=== PATIENT | female | born 1945 | race Caucasian/White ===

== ENCOUNTER 2017-12-06 05:53 | Day surgery (SDC) | payer OTHER ==
[~2017-12-06] VITALS: Ht 157.5 cm; Wt 88.5 kg
[~2017-12-06 05:53] MED LIST: AMLO5 PO; ASPI81CH PO; ATOR10; Alphagan P5 ML BOTHEYES; B-Complex With1 EACH PO; BISA10S PR; BRIM.15SO BOTHEYES; CALCIT950 PO; CALCIUM 600 +1 EAC3 PO; CHOL10002 PO; DILT60 PO; DILTIAZEM 24HR240 M1 PO; ENAL20 PO; FISH OIL 1,0001 EAC1 PO; Garlic Oil1000 MG PO; Hair, Skin & N1 EACH PO; LISI10; LOSA25 PO; Loperamide2 MG PO; MAGCIT300 PO; MELO7.5 PO; METO100ER PO; METO50 PO; METOPROLOL; Magnesium27 MG PO; Multivitamin1 EAC1 PO; NYST100TC TOP; OMEG1CAP30 PO; OXYACE5T PO; PREG150 PO; ROSU5 PO; SILSUL1TC TOP; TELM80; TIZANIDINE HCL2 MG PO; TRAM50 PO; VERA100; Vitamin C100 M1 PO; [UNRECOGNIZED DRUG - REMARK]
[2017-12-07 05:41] LABS: BASOPHILS ABSOLUTE AUTO 0.02 K/mm3 (0.00-0.23); BASOPHILS PERCENT AUTO 0 % (0-2); EOSINOPHILS PERCENT AUTO 0 % (0-6); Hematocrit 37.1 % (33.0-51.0); Hemoglobin 11.8 g/dL (11.5-16.0); IMMATURE GRAN ABSOLUTE AUTO 0.09 K/mm3 (0.00-0.10); IMMATURE GRAN PERCENT AUTO 1 % (0-1); LYMPHOCYTES ABSOLUTE AUTO 2.34 K/mm3 (0.84-5.20); LYMPHOCYTES PERCENT AUTO 15 % (21-46); MONOCYTES ABSOLUTE AUTO 1.23 K/mm3 (0.16-1.47); MONOCYTES PERCENT AUTO 8 % (4-13); Mean Corpuscular HGB 29.6 pg (26.0-34.0); Mean Corpuscular HGB Conc 31.8 g/dL (31.5-36.5); Mean Corpuscular Volume 93 fL (80-100); Mean Platelet Volume 10.3 fL (9.1-12.4); NEUTROPHILS ABSOLUTE AUTO 12.21 K/mm3 (1.96-9.15); NEUTROPHILS PERCENT AUTO 77 % (41-73); Platelet Count 306 K/mm3 (150-400); RDW Coefficient Variation 13.7 % (11.7-14.2); RDW Standard Deviation 46.2 fL (35.1-46.3); Red Blood Cell Count 3.98 M/mm3 (3.80-5.20); White Blood Cell Count 15.89 K/mm3 (4.00-11.30)
[2017-12-07 06:00] LABS: Bun/Creatinine Ratio 16.7 (12.0-20.0); Creatinine, Blood 1.14 mg/dL (0.40-1.00); Magnesium, Blood 2.3 mg/dL (1.6-2.4); Potassium, Blood 4.6 mmol/L (3.5-5.5)
[2017-12-07] MEDS ORDERED: ACET500 PO (15:23)
[2017-12-07] MEDS ORDERED: ASPI325EC PO (15:23)
[2017-12-07] MEDS ORDERED: OXYC5 PO (15:24)
== END 2017-12-07 16:30 | disposition home or self-care (01) ==
LOC: ORSCMMR 05:53 → ORD 07:30 → ORSCMMR 07:30 → SURS 11:15 → ORSCMMR 12-07 16:30
PROVIDERS: Orthopaedic Surgery
PROC: 0SRD0J9 Replacement of Left Knee Joint with Synthetic Substitute, Cemented, Open Approach (ICD-10-PCS; principal; 2017-12-06 07:30)
DX: M17.12 Unilateral primary osteoarthritis, left knee (principal); Z01.812 Encounter for preprocedural laboratory examination; Z01.818 Encounter for other preprocedural examination; I10 Essential (primary) hypertension; Z79.899 Other long term (current) drug therapy; E66.01 Morbid (severe) obesity due to excess calories; Z68.35 Body mass index [BMI] 35.0-35.9, adult
CPT/HCPCS: 36415; 73560-LT; 80048; 83735; 85025; 86850; 86900; 86901; 87077; 87081; 87086; 87186; 88300; 97110; 97116; 97162; 97530; C1713; C1776; G8978; G8979; J0171; J0690; J0735; J1885; J2020; J2250; J2370; J2710; J2795; J3010; J7120

== ENCOUNTER → 2018-11-10 | Outpatient (CLI) | payer OTHER ==
[~2018-11-10] MED LIST changes: +ACET500 PO; +ASPI325EC PO; +OXYC5 PO
== END | disposition home or self-care (01) ==
LOC: LAB UCHC 15:12 → LAB SHORT 15:12
DX: R30.0 Dysuria (principal)
CPT/HCPCS: 87077; 87086; 87186

== ENCOUNTER → 2018-11-23 | Outpatient (CLI) | payer OTHER | END | disposition home or self-care (01) | LOC: LAB 17:48 → LAB SHORT 17:48 | DX: N39.0 Urinary tract infection, site not specified (principal) | CPT/HCPCS: 87077; 87086; 87186 ==

== ENCOUNTER 2019-01-26 12:31 | Day surgery (SDC) | payer OTHER ==
[~2019-01-26] VITALS: Ht 160 cm; Wt 84.7 kg
--- NOTE | 2019-01-26 14:12 | NUR ---
01/26/[address] NOTIFIED OF PRE OP BP'S. NO ORDERS AT THIS TIME.
--- NOTE | 2019-01-26 14:35 | NUR ---
01/26/19 1435 Valorie Sidhu LIDOCAINE 2% JELLY APPLIED TO ANUS PRIOR TO COLONOSCOPY
== END 2019-01-26 15:06 | disposition home or self-care (01) ==
LOC: ORSCSDS 12:31
PROVIDERS: Surgery
PROC: 0DBK8ZX Excision of Ascending Colon, Via Natural or Artificial Opening Endoscopic, Diagnostic (ICD-10-PCS; principal; 2019-01-26 13:45)
PROC: 0DBH8ZX Excision of Cecum, Via Natural or Artificial Opening Endoscopic, Diagnostic (ICD-10-PCS; principal; 2019-01-26 13:45)
PROC: 0DBM8ZX Excision of Descending Colon, Via Natural or Artificial Opening Endoscopic, Diagnostic (ICD-10-PCS; principal; 2019-01-26 13:45)
PROC: 0DBL8ZX Excision of Transverse Colon, Via Natural or Artificial Opening Endoscopic, Diagnostic (ICD-10-PCS; principal; 2019-01-26 13:45)
PROC: 0DJ08ZZ Inspection of Upper Intestinal Tract, Via Natural or Artificial Opening Endoscopic (ICD-10-PCS; principal; 2019-01-26 13:45)
DX: K92.1 Melena (principal); D12.0 Benign neoplasm of cecum; D12.2 Benign neoplasm of ascending colon; D12.3 Benign neoplasm of transverse colon; D12.4 Benign neoplasm of descending colon; Z85.048 Personal history of other malignant neoplasm of rectum, rectosigmoid junction, and anus; I10 Essential (primary) hypertension; M79.7 Fibromyalgia; E03.9 Hypothyroidism, unspecified; Z79.899 Other long term (current) drug therapy
CPT/HCPCS: 88305; J2704; J7120

== ENCOUNTER → 2019-05-15 | Outpatient (CLI) | payer OTHER | LOC: LAB SHORT 14:45 → LAB 14:45 → LAB FUT 08-13 17:15 | DX: N18.3 Chronic kidney disease, stage 3 (moderate) (principal); D63.1 Anemia in chronic kidney disease; R73.09 Other abnormal glucose; N25.81 Secondary hyperparathyroidism of renal origin; E55.9 Vitamin D deficiency, unspecified; E78.00 Pure hypercholesterolemia, unspecified; N20.0 Calculus of kidney; R76.9 Abnormal immunological finding in serum, unspecified; R94.5 Abnormal results of liver function studies; R94.6 Abnormal results of thyroid function studies | CPT/HCPCS: 87077; 87086; 87186 ==

== ENCOUNTER 2019-10-26 07:59 | Inpatient (IN) | payer OTHER ==
[~2019-10-26] VITALS: Ht 165.1 cm; Wt 87.2 kg
[2019-10-26 08:59] LABS: BASOPHILS ABSOLUTE AUTO 0.06 K/mm3 (0.00-0.23); BASOPHILS PERCENT AUTO 0 % (0-2); EOSINOPHILS ABSOLUTE AUTO 0.14 K/mm3 (0.00-0.68); EOSINOPHILS PERCENT AUTO 1 % (0-6); IMMATURE GRAN ABSOLUTE AUTO 0.08 K/mm3 (0.00-0.10); IMMATURE GRAN PERCENT AUTO 1 % (0-1); LYMPHOCYTES ABSOLUTE AUTO 3.46 K/mm3 (0.84-5.20); LYMPHOCYTES PERCENT AUTO 21 % (21-46); MONOCYTES ABSOLUTE AUTO 1.18 K/mm3 (0.16-1.47); MONOCYTES PERCENT AUTO 7 % (4-13); Mean Corpuscular HGB 29.6 pg (26.0-34.0); Mean Corpuscular HGB Conc 30.8 g/dL (31.5-36.5); Mean Corpuscular Volume 96 fL (80-100); Mean Platelet Volume 10.5 fL (9.1-12.4); NEUTROPHILS PERCENT AUTO 70 % (41-73); Platelet Count 355 K/mm3 (150-400); RDW Coefficient Variation 13.7 % (11.7-14.2); RDW Standard Deviation 48.5 fL (35.1-46.3); Red Blood Cell Count 4.05 M/mm3 (3.80-5.20); White Blood Cell Count 16.32 K/mm3 (4.00-11.30)
[2019-10-26 09:16] LABS: Alanine Aminotransfer (ALT/SGP 28 U/L (12-78); Albumin, Blood 3.4 g/dL (3.4-5.0); Albumin/Globulin Ratio 0.9 (0.8-1.8); Alk Phos 81 U/L (50-136); Anion Gap 11 mmol/L (6-16); Aspartate Aminotrans (AST/SGOT 19 U/L (12-37); Bilirubin, Total 0.4 mg/dL (0.1-1.0); Blood Urea Nitrogen 28 mg/dL (8-24); Bun/Creatinine Ratio 15.8 (12.0-20.0); CO2, Blood 20 mmol/L (21-32); Calcium, Blood 9.1 mg/dL (8.5-10.1); Chloride, Blood 110 mmol/L (98-108); Creatinine, Blood 1.77 mg/dL (0.40-1.00); Globulin, Blood 3.8 g/dL (2.2-4.0); Glomerular Filtration Rate 30 (60-); Glucose, Blood 260 mg/dL (70-99); Potassium, Blood 4.1 mmol/L (3.5-5.5); Sodium, Blood 141 mmol/L (136-145); Total Protein, Blood 7.2 g/dL (6.4-8.2); Troponin I <0.015 ng/mL (0.000-0.040)
--- NOTE | 2019-10-26 10:15 | NUR ---
RECEIVED PT FROM ER [facility]IA [employer]. PT VERY OBTUNDED. AGONAL RESPIRATIONS. NOT ABLE TO FOLLOW COMMANDS. SKIN PALE, HAUSER, AND DIAPHORETIC. HR 20'S. ZOLL PADS REPLACED AND BEGAN PACING. 60MA/60 BPM. INITIALLY, UNABLE TO OBTAIN BP. ONCE PACING BP 82/DOPPLER. RESP VERY IRREGULAR/SHALLOW/ AGONAL AT TIMES-UNABLE TO GET SPO2 READING. PT ON 4 LITERS NASAL CANULA. LUNGS WITH SCATTERED WHEEZES. NO NOTED COUGH.NPO AT THIS TIME.
--- NOTE | 2019-10-26 10:35 | NUR ---
PT RESTLESS AND AGITATED WITH TRANSCUTANEOUS PACING. SOFT WRIST RESTRAINTS PLACED TO PREVENT REMOVAL OF ECG/PACING WIRES. PT NOT ABLE TO FOLLOW COMMANDS. SBP 100 WITH PACER AT 60 BPM AND 60 MA. PT STILL EXTREMELY PALE AND DIAPHORETIC. DR. GOODMAN UPDATE TO PT VS AND STATUS. REQUESTED THAT MD COME TO THE BEDSIDE TO EVALUATE PT. NS 1000CC BOLUS INITIATED AND ABG DRAWN PER ORDERS.
--- NOTE | 2019-10-26 10:35 | NUR ---
PT SOMULENT ON ADMISSION. UNABLE TO PROVIDE HISTORY. SPOKE WITH HER DAUGHTER SUZY, SHE UPDATED HISTORY TO AN EXTENT. HOWEVER; PT DAUGHTER STATES THAT HER MOTHER IS "CONSTANCE WEIRD ADN DOESN'T ALWAYS SHARE THE DETAILS OF HER MEDICAL HISTORY OR THE MEDICATIONS SHE IS TAKING WITH ME."
[2019-10-26 10:49] LABS: PCO2 Arterial 28.3 mmHg (35-45); PO2 Arterial 69.1 mmHg (80-100)
--- NOTE | 2019-10-26 11:05 | NUR ---
DR. GOODMAN HERE TO SEE PT. ABG RESULTS GIVEN TO HER BY RT JOEL.
[2019-10-26 11:58] LABS: Source, Urine Catheter
[2019-10-26 12:06] LABS: Bilirubin, Urine Neg (Neg); Blood, Urine 3+ (Neg); Glucose Qualitative, Urine Neg (Neg); Ketones, Urine Neg (Neg); Leukocyte Esterase, Urine 3+ (Neg); Nitrite, Urine Neg (Neg); Protein, Urine 3+ (Neg); Urobilinogen, Urine NORM (Normal)
[2019-10-26 12:29] LABS: Appearance, Urine Hazy (Clear); Color, Urine Yellow (P-Yellow)
[2019-10-26 12:31] LABS: Red Blood Cells, Urine 25-50 /hpf (0-2); White Blood Cells, Urine TNTC /hpf (0-5)
[2019-10-26 12:32] LABS: Bacteria Many /hpf; Squamous Epithelial Cells Few /hpf (Few)
[2019-10-26 12:35] LABS: U Amphetamine Screen Not Detected; U Barbituate Screen Not Detected; U Benzodiazapine Screen Not Detected; U Buprenorphine Screen Not Detected; U Cannabinoids Screen Not Detected; U Cocaine Screen Not Detected; U Methadone Screen Not Detected; U Methamphetamine Screen Not Detected; U Opiates Screen Not Detected; U Oxycodone Screen Not Detected; U Phencyclidine Screen Not Detected; U Propoxyphene Screen Not Detected
--- NOTE | 2019-10-26 12:35 | NUR ---
DR. AMATO HER TO SEE PT. MA TURNED OFF FOR MD TO EVALUATE PT UNDERLYING RHYTHM. 12 LEAD ECG DONE. PT CURRENTLY, IN SR WILTH RATE 80'S. ZOLL PACER REMAINS AT BEDSIDE-WILL LEAVE PACER PADS IN PLACE.
[2019-10-26 13:13] LABS: Albumin, Blood 3.1 g/dL (3.4-5.0); Albumin/Globulin Ratio 0.8 (0.8-1.8); Bilirubin, Total 0.7 mg/dL (0.1-1.0); Bun/Creatinine Ratio 16.6 (12.0-20.0); Calcium, Blood 10.2 mg/dL (8.5-10.1); Creatinine, Blood 1.63 mg/dL (0.40-1.00); Globulin, Blood 4.1 g/dL (2.2-4.0); Magnesium, Blood 2.2 mg/dL (1.6-2.4); Phosphorus, Blood 3.7 mg/dL (2.5-4.9); Potassium, Blood 4.9 mmol/L (3.5-5.5); Total Protein, Blood 7.2 g/dL (6.4-8.2)
[2019-10-26 13:19] LABS: Thyroid Stimulating Hormone 2.89 uIU/mL (0.360-4.800)
--- NOTE | 2019-10-26 14:15 | NUR ---
PT MORE AWAKE AND ALERT. ABLE TO STATE AND ORIENTED TO PERSON AND PLACE. PT IS STILL QUITE SLEEPY AND CONFUSED-PULLING AT ECG LINES, IV TUBING, AND AZUL TUBING. ORAL CARE DONE, PT GIVEN SPONGE BATH, ORAL CARE DONE, AND PARTIAL LINEN CHANGE COMPLETED. PT TOLERATED WELL.
--- NOTE | 2019-10-26 15:20 | NUR ---
echocardiogram completed.
--- NOTE | 2019-10-26 16:25 | NUR ---
PT TO CT SCAN OF THE HEAD VIA BED WITH RN @ BEDSIDE. PT TOLERATED WELL. PT IS AWAKE, ALERT, AND FOLLOWING MOST COMMANDS. BUENO, BUT GENERALLY WEAK. PT IS FORGETFUL. CONTINUES WITH CONFUSED CONVERSATION. PT CONTINUES TO PULL ON AZUL, ECG WIRES WHEN NOT RESTRAINED. SOFT WRIST RESTRAINTS REMAIN IN PLACE FOR PT SAFETY. ECG SHOWS SR WITH RATE 80'S. SBP TRENDING 140'S/90'S. LUNGS CLEAR-SATS>90% ON RA. PT GIVEN A FEW ICE CHIPS TO WET HER MOUTH-TOLERATED WELL.
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
[2019-10-27 03:46] LABS: BASOPHILS ABSOLUTE AUTO 0.04 K/mm3 (0.00-0.23); BASOPHILS PERCENT AUTO 0 % (0-2); EOSINOPHILS PERCENT AUTO 1 % (0-6); Hematocrit 35.5 % (33.0-51.0); Hemoglobin 11.4 g/dL (11.5-16.0); IMMATURE GRAN ABSOLUTE AUTO 0.03 K/mm3 (0.00-0.10); IMMATURE GRAN PERCENT AUTO 0 % (0-1); LYMPHOCYTES ABSOLUTE AUTO 2.46 K/mm3 (0.84-5.20); LYMPHOCYTES PERCENT AUTO 26 % (21-46); MONOCYTES ABSOLUTE AUTO 0.88 K/mm3 (0.16-1.47); MONOCYTES PERCENT AUTO 9 % (4-13); Mean Corpuscular HGB 29.7 pg (26.0-34.0); Mean Corpuscular HGB Conc 32.1 g/dL (31.5-36.5); Mean Corpuscular Volume 92 fL (80-100); Mean Platelet Volume 10.3 fL (9.1-12.4); NEUTROPHILS ABSOLUTE AUTO 5.85 K/mm3 (1.96-9.15); NEUTROPHILS PERCENT AUTO 63 % (41-73); Platelet Count 266 K/mm3 (150-400); RDW Coefficient Variation 13.9 % (11.7-14.2); RDW Standard Deviation 46.6 fL (35.1-46.3); Red Blood Cell Count 3.84 M/mm3 (3.80-5.20); White Blood Cell Count 9.36 K/mm3 (4.00-11.30)
[2019-10-27 04:05] LABS: Albumin, Blood 3.1 g/dL (3.4-5.0); Albumin/Globulin Ratio 0.8 (0.8-1.8); Bilirubin, Total 0.6 mg/dL (0.1-1.0); Bun/Creatinine Ratio 14.3 (12.0-20.0); Calcium, Blood 8.9 mg/dL (8.5-10.1); Creatinine, Blood 1.4 mg/dL (0.40-1.00); Globulin, Blood 3.7 g/dL (2.2-4.0); Potassium, Blood 3.3 mmol/L (3.5-5.5); Total Protein, Blood 6.8 g/dL (6.4-8.2)
--- NOTE | 2019-10-27 05:31 | NUR ---
SHIFT SUMMARY PATIENT SLEPT OFF AND ON THROUGH NIGHT. PATIENT ALERT, ORIENTED, SOME CONFUSION TO WHY SHE IS IN HOSPITAL, BUT OTHERWISE ORIENTED, AGREEABLE TO BASIC SAFETY MEASURES. HR MAINTAINED ~ 82-84 THROUGHOUT NIGHT, BP ~ 130-140s/70-80s. NO C/O PAIN. ASSESSMENT IS CHARTED. VSS. WILL CONTINUE TO MONITOR.
--- NOTE | 2019-10-27 07:15 | NUR ---
BEGINNING OF SHIFT Assumed care at 0700. Bedside report received from Rickey OKEEFE. Pt A&O x 2. Answers questions. Follows commands. Verbalizes needs. Pt on room air. SpO2 90% or greater. SR per monitor. States she would like food today. Pt currently on clear liquid diet. Patel catheter in place. Plan to remove. Bed in lowest position. Call light in reach. Bed alarm on.
--- NOTE | 2019-10-27 09:45 | NUR ---
UPDATE PROVIDED TO POISON CONTROL. NO RECOMMENDATIONS AT THIS TIME.
--- NOTE | 2019-10-27 10:00 | NUR ---
CALLS PLACED TO DR GOODMAN 0805 - Called provider to notify that pt would like diet advanced. States that pt may have regular adult diet. Provider states she received an update from Dr Mathur and pt is okay to move to medical floor with telemetry. 1000 - Pt inquired about urinalysis because she suspects she may have a UTI. States prior to admit, pain with urinating and urinary frequency. Update given to Dr Goodman. Orders given for PO Keflex.
--- NOTE | 2019-10-27 10:30 | NUR ---
TRANSFER Pt transferred out of ICU to room 347 at 1025 via wheelchair accompanied by this RN and PCT Nataliya. IV fluids continued on transfer. Telephone report given to Sd OKEEFE. Chart, medications, and belongings transferred with patient. Family notified of pt transfer.
--- NOTE | 2019-10-27 13:01 | NUR ---
pt called nurse in to look at a swarm of fruit flies that form in her doorway but are being pierced by b52's, assured her they were not there, dicussed other people she saw in her doorway, requested that she call if she sees anyone other than the nurse or aid to try to reduce her anxiety
--- NOTE | 2019-10-27 18:26 | NUR ---
alert and orintated most of the time but has dilusisons/halucnations, she knows they do not make sense but sees them, call light in reach, saline locked and infusing with no s/sx of infiltration or infection, will continue to monitor and treat until share bsr with noc nurse and pt
--- NOTE | 2019-10-27 20:02 | NUR ---
CALLED SURVEYING CREW RODMAN BP ELEVATED 175/116 IN RT ARM, 183/110 IN LEFT ARM. PT HAS BEEN EATING AND DRINKING TODAY. SURVEYING CREW RODMAN ORDERED IV FLUIDS TO BE DC'D. WILL RECHECK BP IN A FEW HOURS.
--- NOTE | 2019-10-27 22:52 | NUR ---
SPOKE WITH SR ACCOUNT EXECUTIVE INFORMED HER THAT PT BP HAD NOT IMPROVED. SR ACCOUNT EXECUTIVE ORDERED PRN HYDRALAZINE, SEE EMAR. THIS WAS ADMINISTERED. WILL RECHECK BP IN ONE HOUR SUGGESTED BY SR ACCOUNT EXECUTIVE. WILL INFORM DAY NURSE TO ASK THE HOSPITALIST IF THE EMAR NEEDS REVISED DUE TO HTN.
--- NOTE | 2019-10-28 00:50 | NUR ---
CALLED HOSPITALIST INFORMED HIM THAT PT'S BLOOD PRESSURE VIRTUALLY UNCHANGED FOLLOWING HYDRALAZINE PRN ADMINISTRATION. INFORMED HIM THAT PT WAS GETTING UP FREQUENTLY, RESTLESS AND ANXIOUS DUE TO HALLUCINATIONS. HE DID CHANGE DOSAGE ON PRN HYDRALAZINE, INSTRUCTING ME TO HOLD OFF ON ADMINISTERING MORE HYDRALAZINE FOR NOW. IF WE RECHECK BP IN AND HOUR OR SO - AND IT IS GREATER THAN 180 SBP, THEN I COULD ADMIN 10 MORE MG.
--- NOTE | 2019-10-28 04:00 | NUR ---
SHIFT SUMMARY ADMITTED FOR ACUTE & CHRONIC RESP FAILURE. DNR CODE. SHE IS ON HER BASELINE O2 AT 2 LPM. SHE IS NPO, BOLUS TUBE FEEDINGS ARE SCHEDULED. EXPECTED TO DC [facility]. SHE IS A&O X4, 1 ASSIST W/FWW TO BATHROOM. LIVES WITH HER .
--- NOTE | 2019-10-28 04:12 | NUR ---
SHIFT SUMMARY ADDENDUM HYPERTENSION THROUGHOUT SHIFT. SEE PREVIOUS NOTES. HYDRALAZINE NOW AVAILABLE PRN, SEE EMAR FOR PARAMETERS. DAIRY EQUIPMENT REPAIRER AND NIGHT HOSPITALIST ARE AWARE.
[2019-10-28 05:33] LABS: Bun/Creatinine Ratio 17.3 (12.0-20.0); Calcium, Blood 9.1 mg/dL (8.5-10.1); Creatinine, Blood 1.33 mg/dL (0.40-1.00); Potassium, Blood 3.8 mmol/L (3.5-5.5)
--- NOTE | 2019-10-28 16:36 | NUR ---
MEDICATED FOR HIGH BP
--- NOTE | 2019-10-28 19:39 | NUR ---
a+o, bp variable, saline locked, call light in reach, report shared with pt and noc nurse
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
[2019-10-29] MEDS ORDERED: CEPH500 PO (11:05)
--- NOTE | 2019-10-29 12:40 | NUR ---
DISCHARGE:Reviewed stay, medications, dc instructions and what had brought her to [facility], removed all three IV's, staff took her downstairs in a wc to wait for family to take her home
== END 2019-10-29 12:26 | disposition home or self-care (01) | DRG 917 ==
LOC: ER 07:59 → MEDS 09:33 → ICUW 09:33 → MEDS 10-27 10:15
PROVIDERS: Emergency Medicine; ADMIT Internal Medicine
DX: T46.1X1A Poisoning by calcium-channel blockers, accidental (unintentional), initial encounter (principal); G92 Toxic encephalopathy; N30.00 Acute cystitis without hematuria; E87.5 Hyperkalemia; E04.1 Nontoxic single thyroid nodule; G89.29 Other chronic pain; M54.9 Dorsalgia, unspecified; Z89.519 Acquired absence of unspecified leg below knee; E66.9 Obesity, unspecified; R00.1 Bradycardia, unspecified; R44.1 Visual hallucinations; N18.3 Chronic kidney disease, stage 3 (moderate); I12.9 Hypertensive chronic kidney disease with stage 1 through stage 4 chronic kidney disease, or unspecified chronic kidney disease; I51.89 Other ill-defined heart diseases; T42.6X5A Adverse effect of other antiepileptic and sedative-hypnotic drugs, initial encounter; Y92.238 Other place in hospital as the place of occurrence of the external cause; Z68.28 Body mass index [BMI] 28.0-28.9, adult
CPT/HCPCS: 36415; 36600; 51702; 70450; 80048; 80053; 81001; 82330; 82803; 83735; 84100; 84443; 84484; 85025; 87077; 87081; 87086; 93005; 93010; 93306; 96374; 96375; 96376; 97162; 99285-25; A9270; A9270-GY; J0360; J0461; J0610; J1610; J2405; J2550; J7030

== ENCOUNTER → 2021-03-21 | Outpatient (CLI) | payer OTHER ==
[~2021-03-21] MED LIST changes: +CEPH500 PO
== END | disposition home or self-care (01) ==
LOC: LAB SHORT 16:27
DX: N39.0 Urinary tract infection, site not specified (principal)
CPT/HCPCS: 87077; 87086; 87186

== ENCOUNTER → 2021-04-16 | Outpatient (CLI) | payer OTHER ==
[2021-04-16 16:43] LABS: Bun/Creatinine Ratio 12.1 (12.0-20.0); Calcium, Blood 9.9 mg/dL (8.5-10.1); Creatinine, Blood 1.49 mg/dL (0.40-1.00); Potassium, Blood 4.1 mmol/L (3.5-5.5)
== END | disposition home or self-care (01) ==
LOC: LAB SHORT 12:59 → LAB FUT 01-13 09:40
PROVIDERS: Urology
DX: N13.30 Unspecified hydronephrosis (principal)
CPT/HCPCS: 36415; 80048

== ENCOUNTER → 2021-09-23 | Outpatient (CLI) | payer OTHER | END | disposition home or self-care (01) | LOC: LAB 07:50 → LAB SHORT 07:50 | DX: B35.1 Tinea unguium (principal); L60.2 Onychogryphosis | CPT/HCPCS: 88305; 88312 ==

== ENCOUNTER → 2022-04-21 | Outpatient (CLI) | payer OTHER ==
[2022-04-21 16:56] LABS: Albumin, Blood 3.5 g/dL (3.4-5.0); Anion Gap 7 mmol/L (6-16); Blood Urea Nitrogen 18 mg/dL (8-24); Bun/Creatinine Ratio 12.6 (12.0-20.0); CO2, Blood 23 mmol/L (21-32); Calcium, Blood 9.8 mg/dL (8.5-10.1); Chloride, Blood 113 mmol/L (98-108); Creatinine, Blood 1.43 mg/dL (0.40-1.00); Glomerular Filtration Rate 38 (60-); Glucose, Blood 175 mg/dL (70-99); Phosphorus, Blood 2.5 mg/dL (2.5-4.9); Sodium, Blood 143 mmol/L (136-145)
[2022-04-21 17:07] LABS: Bun/Creatinine Ratio 12.8 (12.0-20.0); Calcium, Blood 9.7 mg/dL (8.5-10.1); Creatinine, Blood 1.48 mg/dL (0.40-1.00)
== END | disposition home or self-care (01) ==
LOC: LAB SHORT 15:41 → LAB FUT 01-30 14:55
PROVIDERS: Internal Medicine Nephrology; Urology
DX: N18.4 Chronic kidney disease, stage 4 (severe) (principal); N13.30 Unspecified hydronephrosis
CPT/HCPCS: 36415; 80048; 80069

== ENCOUNTER → 2022-06-01 | Outpatient (CLI) | payer OTHER ==
[~2022-06-01] MED LIST changes: +AMLODIPINE BESYL5 MG; +Alphagan P 5ML5 ML; +NYSTATIN500000 UNI; +TIZA4 PO; +XALATAN2.5 ML
== END | disposition home or self-care (01) ==
LOC: LAB SHORT 16:41
DX: N39.0 Urinary tract infection, site not specified (principal)
CPT/HCPCS: 87077; 87086; 87186

== ENCOUNTER → 2023-01-28 | Outpatient (CLI) | payer OTHER | END | disposition home or self-care (01) | LOC: LAB SHORT 12:00 → LAB 12:00 | DX: N39.0 Urinary tract infection, site not specified (principal) | CPT/HCPCS: 87077; 87086; 87186 ==

== ENCOUNTER → 2023-02-04 | Outpatient (CLI) | payer OTHER | END | disposition home or self-care (01) | LOC: LAB SHORT 14:00 → LAB 14:00 | DX: E11.9 Type 2 diabetes mellitus without complications (principal) | CPT/HCPCS: 82043 ==

== ENCOUNTER → 2023-03-10 | Outpatient (CLI) | payer OTHER | LOC: LAB 17:16 → LAB SHORT 17:16 | DX: N39.0 Urinary tract infection, site not specified (principal) | CPT/HCPCS: 87077; 87086; 87186 ==

== ENCOUNTER → 2024-02-14 | Outpatient (CLI) | payer OTHER ==
[2024-02-15 14:10] LABS: C DIFFICILE DNA NEGATIVE (Negative)
== END ==
LOC: LAB SHORT 02-10 16:55 → LAB 16:55 → LAB FUT 02-09 14:05
PROVIDERS: Internal Medicine Nephrology
DX: N18.30 Chronic kidney disease, stage 3 unspecified (principal); N25.81 Secondary hyperparathyroidism of renal origin; E55.9 Vitamin D deficiency, unspecified; E78.00 Pure hypercholesterolemia, unspecified; R76.9 Abnormal immunological finding in serum, unspecified; R94.5 Abnormal results of liver function studies; R94.6 Abnormal results of thyroid function studies
CPT/HCPCS: 87493

== ENCOUNTER → 2024-02-28 | Outpatient (CLI) | payer OTHER ==
[2024-03-01 22:49] LABS: Uric Acid, Urine 16.2 mg/dL (7.5-49.5)
== END ==
LOC: LAB SHORT 21:00 → LAB 21:00 → LAB SHORT 03-01 14:35
PROVIDERS: Internal Medicine Nephrology
DX: N18.2 Chronic kidney disease, stage 2 (mild) (principal); D63.1 Anemia in chronic kidney disease; M10.9 Gout, unspecified; N39.0 Urinary tract infection, site not specified; R94.6 Abnormal results of thyroid function studies; R94.5 Abnormal results of liver function studies
CPT/HCPCS: 81050; 84560

== ENCOUNTER 2024-06-07 13:43 | Inpatient (IN) | payer OTHER ==
[~2024-06-07] VITALS: Ht 157.5 cm; Wt 71.1 kg
[~2024-06-07 13:43] MED LIST changes: -Alphagan P 5ML5 ML; +BRIMONIDINE TART5 M2 BOTHEYES; -XALATAN2.5 ML; +XALATAN2.5 ML BOTHEYES
[2024-06-07 18:18] LABS: BASOPHILS ABSOLUTE AUTO 0.06 K/mm3 (0.00-0.23); BASOPHILS PERCENT AUTO 1 % (0-2); EOSINOPHILS ABSOLUTE AUTO 0.16 K/mm3 (0.00-0.68); EOSINOPHILS PERCENT AUTO 2 % (0-6); Hematocrit 37.7 % (33.0-51.0); Hemoglobin 12.3 g/dL (11.5-16.0); IMMATURE GRAN ABSOLUTE AUTO 0.13 K/mm3 (0.00-0.10); IMMATURE GRAN PERCENT AUTO 2 % (0-1); LYMPHOCYTES PERCENT AUTO 29 % (21-46); MONOCYTES ABSOLUTE AUTO 0.55 K/mm3 (0.16-1.47); MONOCYTES PERCENT AUTO 7 % (4-13); Mean Corpuscular HGB 30.4 pg (26.0-34.0); Mean Corpuscular HGB Conc 32.6 g/dL (31.5-36.5); Mean Corpuscular Volume 93 fL (80-100); Mean Platelet Volume 10.2 fL (9.1-12.4); NEUTROPHILS ABSOLUTE AUTO 4.81 K/mm3 (1.96-9.15); NEUTROPHILS PERCENT AUTO 60 % (41-73); Platelet Count 490 K/mm3 (150-400); RDW Coefficient Variation 13.7 % (11.7-14.2); RDW Standard Deviation 46.8 fL (35.1-46.3); Red Blood Cell Count 4.04 M/mm3 (3.80-5.20); White Blood Cell Count 8.01 K/mm3 (4.00-11.30)
[2024-06-07] MEDS ORDERED: NYSTATIN15 GM TOP (18:20)
[2024-06-07] MEDS ORDERED: DORZOLAMIDE-TIM10 ML BOTHEYES (18:20)
[2024-06-07 18:27] LABS: Source, Urine Clean Catch
[2024-06-07 18:34] LABS: Appearance, Urine Cloudy (Clear); Bilirubin, Urine Neg (Neg); Blood, Urine 3+ (Neg); Glucose Qualitative, Urine Neg (Neg); Ketones, Urine Neg (Neg); Leukocyte Esterase, Urine 3+ (Neg); Nitrite, Urine Pos (Neg); Protein, Urine 3+ (Neg); Urobilinogen, Urine NORM (Normal)
[2024-06-07 18:48] LABS: Color, Urine Pale Yellow (P-Yellow); White Blood Cells, Urine TNTC /hpf (0-5)
[2024-06-07 18:49] LABS: Bacteria Many /hpf; Granular Casts 0-2 /lpf (0); Squamous Epithelial Cells Few /hpf (Few)
[2024-06-07 18:49] LABS: Albumin, Blood 2.8 g/dL (3.4-5.0); Albumin/Globulin Ratio 0.5 (0.8-1.8); Bilirubin, Total 0.2 mg/dL (0.1-1.0); Bun/Creatinine Ratio 10.7 (12.0-20.0); Creatinine, Blood 11.1 mg/dL (0.40-1.00); Globulin, Blood 6.1 g/dL (2.2-4.0); Potassium, Blood 6.1 mmol/L (3.5-5.5); Total Protein, Blood 8.9 g/dL (6.4-8.2)
[2024-06-07] MEDS ORDERED: Lactated Ringer's 1,000 ML IV ONE (19:00)
[2024-06-07] MEDS ORDERED: CefTRIAXone Sodium 1,000 MG in NS 100 ML IV ONE (19:00)
[2024-06-07 19:19] LABS: Magnesium, Blood 2.9 mg/dL (1.6-2.4)
[2024-06-07] MEDS ORDERED: HydrALAZINE HCl 25 MG Tab PO PRN (20:35)
[2024-06-07] MEDS ORDERED: FLU VACC TS2024-25(6MOS UP)/PF 45 MCG/0.5 ML SYRINGE IM SCH (20:35)
[2024-06-07] MEDS ORDERED: Ondansetron HCl 2 MG / ML 2ML Vial IV PRN (20:35)
[2024-06-07] MEDS ORDERED: Labetalol HCL 5 MG/ML 4ML Injection (Single Dose) IV PRN (20:40)
[2024-06-07] MEDS ORDERED: Sodium Bicarb 8.4% Inj 150 MEQ in Dextrose 5% 1,000 ML IV SCH (21:30)
[2024-06-07 22:57] LABS: Bun/Creatinine Ratio 10.9 (12.0-20.0); Calcium, Blood 9.3 mg/dL (8.5-10.1); Creatinine, Blood 10.3 mg/dL (0.40-1.00); Potassium, Blood 6.1 mmol/L (3.5-5.5)
[2024-06-07 23:37] VITALS: BP 169/85
--- NOTE | 2024-06-07 23:50 | NUR ---
ADMIT NOTE HANDOFF RECEIVED FROM URGENT CARE NURSE PRACTITIONERSARY HOGAN. PT ARRIVED VIA GURNEY. PT ORIENTED TO UNIT. CALL BUTTON WITHIN REACH. TELEMETRY IS ORDERED. SODIUM BICARB IS INFUSING ORDERED. ISOLATION PRECAUTIONS IN PLACE. PERSONAL POSSESSIONS WITH PATIENT.
--- NOTE | 2024-06-08 04:06 | NUR ---
SHIFT SUMMARY ADMITTED THIS SHIFT FOR CHRIST/UTI. FULL CODE. ISOLATION PRECAUTIONS FOR POSSIBLE BUGS SPOTTED IN THE ER, AND ALSO HX OF ESBL IN URINE. TELEMETRY: NSR @ [address] IN THE ER[address] FULL LIQUID DIET. A&O X4. ON RA. NA+ BICARB INFUSING ORDERED. STANDBY ASSIST W/FWW - BSC. IV ANTIB RX ARE SCHEDULED. DR. CRAIG IS RENAL CONSULT. HTN NOTED IN ER, NOW IS MUCH IMPROVED. MONITORING LABS.
[2024-06-08 04:43] VITALS: BP 149/88
[2024-06-08 05:36] LABS: BASOPHILS ABSOLUTE AUTO 0.08 K/mm3 (0.00-0.23); BASOPHILS PERCENT AUTO 1 % (0-2); EOSINOPHILS ABSOLUTE AUTO 0.22 K/mm3 (0.00-0.68); EOSINOPHILS PERCENT AUTO 3 % (0-6); Hematocrit 33.2 % (33.0-51.0); Hemoglobin 10.8 g/dL (11.5-16.0); IMMATURE GRAN ABSOLUTE AUTO 0.11 K/mm3 (0.00-0.10); IMMATURE GRAN PERCENT AUTO 1 % (0-1); LYMPHOCYTES PERCENT AUTO 42 % (21-46); MONOCYTES ABSOLUTE AUTO 0.63 K/mm3 (0.16-1.47); MONOCYTES PERCENT AUTO 8 % (4-13); Mean Corpuscular HGB 30.4 pg (26.0-34.0); Mean Corpuscular HGB Conc 32.5 g/dL (31.5-36.5); Mean Corpuscular Volume 94 fL (80-100); Mean Platelet Volume 9.9 fL (9.1-12.4); NEUTROPHILS ABSOLUTE AUTO 3.41 K/mm3 (1.96-9.15); NEUTROPHILS PERCENT AUTO 45 % (41-73); Platelet Count 456 K/mm3 (150-400); RDW Coefficient Variation 13.6 % (11.7-14.2); RDW Standard Deviation 46.3 fL (35.1-46.3); Red Blood Cell Count 3.55 M/mm3 (3.80-5.20); White Blood Cell Count 7.65 K/mm3 (4.00-11.30)
[2024-06-08] MEDS ORDERED: Sodium Bicarb 8.4% Inj 150 MEQ in Dextrose 5% 1,000 ML IV SCH ×2 (06:20→07:15)
[2024-06-08 06:51] LABS: Magnesium, Blood 2.9 mg/dL (1.6-2.4)
[2024-06-08 06:57] LABS: Albumin, Blood 2.4 g/dL (3.4-5.0); Albumin/Globulin Ratio 0.4 (0.8-1.8); Bilirubin, Total 0.3 mg/dL (0.1-1.0); Bun/Creatinine Ratio 11.2 (12.0-20.0); Calcium, Blood 9.1 mg/dL (8.5-10.1); Creatinine, Blood 9.77 mg/dL (0.40-1.00); Globulin, Blood 5.4 g/dL (2.2-4.0); Phosphorus, Blood 7.8 mg/dL (2.5-4.9); Potassium, Blood 5.8 mmol/L (3.5-5.5); Total Protein, Blood 7.8 g/dL (6.4-8.2)
[2024-06-08 07:33] VITALS: BP 144/90
[2024-06-08] MEDS ORDERED: Heparin Sodium 5000 Units/ML 1ML MDV SC SCH (09:00)
--- NOTE | 2024-06-08 12:02 | NUR ---
DISCUSSED JORGE ALBERTO WITH DR PERSAUD. WANTS PT TO KEEP AZUL TO HELP KEEP TRACT OF I&O.
[2024-06-08 13:08] LABS: Albumin, Blood 2.8 g/dL (3.4-5.0); Anion Gap 14 mmol/L (3-11); Blood Urea Nitrogen 102 mg/dL (8-24); Bun/Creatinine Ratio 11.5 (12.0-20.0); CO2, Blood 21 mmol/L (21-32); Calcium, Blood 9.4 mg/dL (8.5-10.1); Chloride, Blood 108 mmol/L (98-108); Creatinine, Blood 8.89 mg/dL (0.40-1.00); Glomerular Filtration Rate 4 (60-); Glucose, Blood 93 mg/dL (70-99); Phosphorus, Blood 6.5 mg/dL (2.5-4.9); Potassium, Blood 5.6 mmol/L (3.5-5.5); Sodium, Blood 137 mmol/L (136-145)
[2024-06-08] MEDS ORDERED: TiZANidine HCl 4 MG Tab PO PRN (16:25)
[2024-06-08] MEDS ORDERED: Nystatin 100,000 Unit/GM CREAM 15 GM TOP PRN (16:35)
--- NOTE | 2024-06-08 16:51 | NUR ---
NO ACUTE CHANGES PT IS AOX4 AND COOPERATIVE OF CARE. PT'S L LEG CELLULITIS LOOKS TO BE IMPROVING AND EDEMA AND REDNESS IS GOING DOWN. 1 PERSON ASSIST TO BEDSIDE COMMODE. USES CALL LIGHT APROPRIATELY. CALL LIGHT WITHIN REACH WILL CONTINUE TO MONITOR.
--- NOTE | 2024-06-08 16:54 | NUR ---
PT IS AOX4 AND COOPERATIVE OF CARE. PT HAS BEEN MADE INDEPENDENT BY PHYSICAL THERAPY PT HOWEVER NEEDS HELP WITH HER IV. PT USES WALKER AND IS VERY STABLE MOVING AROUND IN ROOM. PT'S AZUL IS PATENT. CALL LIGHT IS WITHIN REACH AND WILL CONTINUE TO MONITOR.
[2024-06-08 19:39] VITALS: BP 150/90
[2024-06-08] MEDS ORDERED: CefTRIAXone Sodium 1,000 MG in NS 100 ML IV SCH (21:00)
[2024-06-08] MEDS ORDERED: Dorzolamide/Timolol Opth Soln 10 ML BOTHEYES SCH (21:00)
[2024-06-08] MEDS ORDERED: Metoprolol Succinate 50 MG TABCR PO SCH (21:00)
[2024-06-08] MEDS ORDERED: CefTRIAXone Sodium 2,000 MG in NS 100 ML IV SCH (21:00)
[2024-06-08] MEDS ORDERED: Latanoprost 0.005% Opth Soln 2.5 ML BOTHEYES SCH (21:00)
[2024-06-08] MEDS ORDERED: Brimonidine Tartrate 0.2% Opth 5 ml BOTHEYES SCH (21:00)
--- NOTE | 2024-06-09 04:01 | NUR ---
SHIFT SUMMARY ADMITTED FOR CHRIST/UTI. FULL CODE. IV ANTIB RX ARE SCHEDULED. NA+ BICARB IN D5 INFUSING ORDERED. TELEMETRY: NSR @ [address] FOR STRICT I&O, HOSPITALIST IS AWARE. MONITORING LABS, WHICH APPEAR TO BE IMPROVING SO FAR. SHE IS A STANDBY W/FWW - BRP, DUE TO CORDS AND TUBES. RENAL DIET. DR. CRAIG IS RENAL CONSULT. CONTACT ISOLATION FOR HX OF ESBL IN URINE, AND ER PERSONNEL SPOTTED 1 BUG (UNKNOWN TYPE) IN ER - BUT OUR SUBSEQUENT SEARCHES HAVE NOT REVEALED ANY THUS FAR. ON RA. A&O X4.
[2024-06-09 04:16] VITALS: BP 153/83
[2024-06-09 05:14] LABS: Hematocrit 34.3 % (33.0-51.0); Hemoglobin 11.4 g/dL (11.5-16.0)
[2024-06-09] MEDS ORDERED: Sodium Bicarb 8.4% Inj 150 MEQ in Dextrose 5% 1,000 ML IV SCH (05:35)
[2024-06-09 05:45] LABS: Albumin, Blood 2.6 g/dL (3.4-5.0); Anion Gap 14 mmol/L (3-11); Blood Urea Nitrogen 94 mg/dL (8-24); Bun/Creatinine Ratio 12.2 (12.0-20.0); CO2, Blood 24 mmol/L (21-32); Calcium, Blood 8.9 mg/dL (8.5-10.1); Chloride, Blood 109 mmol/L (98-108); Creatinine, Blood 7.68 mg/dL (0.40-1.00); Glomerular Filtration Rate 5 (60-); Glucose, Blood 97 mg/dL (70-99); Magnesium, Blood 2.6 mg/dL (1.6-2.4); Phosphorus, Blood 6.8 mg/dL (2.5-4.9); Potassium, Blood 4.9 mmol/L (3.5-5.5); Sodium, Blood 142 mmol/L (136-145)
[2024-06-09] MEDS ORDERED: D5W-NS 1,000 ML IV SCH (06:35)
[2024-06-09 07:43] VITALS: BP 148/94
[2024-06-09] MEDS ORDERED: Sodium Bicarbonate 650 MG Tab PO SCH (09:00)
[2024-06-09 15:42] VITALS: BP 140/86
--- NOTE | 2024-06-09 16:30 | NUR ---
NO ACUTE CHANGES PT IS AOX4 AND COOPERATIVE OF CARE. PT IS A STANDBY ASSIST DUE TO IV LINE. PT IS AXIOUS DUE TO HER KIDNEYS NOT RECOVERING FAST. PT HAS BEEN TALKED TO BY BOTH DOCTORS AND THIS COLLEGE AND CAREER COUNSELOR. PT CAN CALL APPROPRIATELY AND CALL LIGHT IS WITHIN REACH WILL CONTINUE TO MONITOR.
[2024-06-09 19:52] VITALS: BP 155/96
[2024-06-10 02:36] VITALS: BP 160/91
--- NOTE | 2024-06-10 04:54 | NUR ---
Pt A&O x4, VS WNL, Patel with adequate output. denies pain, BM on this shift. Remains on D5NS at 75ml// hr. Tele NSR. Remains on isolation for ESBL in urine. Awaiting for IR to be available to do procedure assuming lithotripsy for kidney stones. Pt up with SBA. Awaiting labs.
[2024-06-10 05:11] LABS: Hematocrit 33.6 % (33.0-51.0); Hemoglobin 10.8 g/dL (11.5-16.0); Mean Corpuscular HGB 30.3 pg (26.0-34.0); Mean Corpuscular HGB Conc 32.1 g/dL (31.5-36.5); Mean Corpuscular Volume 94 fL (80-100); Mean Platelet Volume 9.5 fL (9.1-12.4); Platelet Count 421 K/mm3 (150-400); RDW Coefficient Variation 13.2 % (11.7-14.2); RDW Standard Deviation 45.4 fL (35.1-46.3); Red Blood Cell Count 3.56 M/mm3 (3.80-5.20)
[2024-06-10 06:00] LABS: Albumin, Blood 2.4 g/dL (3.4-5.0); Anion Gap 11 mmol/L (3-11); Blood Urea Nitrogen 77 mg/dL (8-24); Bun/Creatinine Ratio 12.3 (12.0-20.0); CO2, Blood 21 mmol/L (21-32); Calcium, Blood 8.4 mg/dL (8.5-10.1); Chloride, Blood 113 mmol/L (98-108); Creatinine, Blood 6.24 mg/dL (0.40-1.00); Glomerular Filtration Rate 6 (60-); Glucose, Blood 105 mg/dL (70-99); Magnesium, Blood 2.2 mg/dL (1.6-2.4); Phosphorus, Blood 6.1 mg/dL (2.5-4.9); Sodium, Blood 141 mmol/L (136-145)
[2024-06-10 07:41] VITALS: BP 172/96
[2024-06-10] MEDS ORDERED: D5W-NS 1,000 ML IV SCH (09:35)
--- NOTE | 2024-06-10 16:15 | NUR ---
NO CHANGES IN PT STATUS. PT WAS COMOFTABLE ALL DAY TIH NO C/O OF PAIN. PT HAS NO QUESTIONS OR CONCERNS AT THIS TIME.
[2024-06-10 16:27] VITALS: BP 169/86
[2024-06-10 20:01] VITALS: BP 171/80
[2024-06-11 02:41] VITALS: BP 161/75
[2024-06-11 05:13] LABS: Hematocrit 35.6 % (33.0-51.0); Hemoglobin 11.4 g/dL (11.5-16.0)
[2024-06-11 05:45] LABS: Albumin, Blood 2.6 g/dL (3.4-5.0); Anion Gap 14 mmol/L (3-11); Blood Urea Nitrogen 56 mg/dL (8-24); Bun/Creatinine Ratio 11.9 (12.0-20.0); CO2, Blood 18 mmol/L (21-32); Calcium, Blood 8.9 mg/dL (8.5-10.1); Chloride, Blood 119 mmol/L (98-108); Creatinine, Blood 4.69 mg/dL (0.40-1.00); Glomerular Filtration Rate 9 (60-); Glucose, Blood 93 mg/dL (70-99); Phosphorus, Blood 4.8 mg/dL (2.5-4.9); Potassium, Blood 3.8 mmol/L (3.5-5.5); Sodium, Blood 147 mmol/L (136-145)
--- NOTE | 2024-06-11 06:14 | NUR ---
Pt a&O x4, VS WNL, UOP above average this shift. tele NSR. Pt remains on IVF. Denies pain. Awaiting IR to arrange for ureteral stent placement.
[2024-06-11] MEDS ORDERED: Sodium Bicarb 8.4% Inj 50 MEQ in Dextrose 5% 1,000 ML IV SCH (06:15)
[2024-06-11 07:36] VITALS: BP 142/77
[2024-06-11] MEDS ORDERED: Sodium Bicarbonate 650 MG Tab PO SCH (08:00)
--- NOTE | 2024-06-11 15:39 | NUR ---
NO CHANGES IN PT STATUS. PT HAS NO QUESTIONS OR CONCERNS.
[2024-06-11 15:48] VITALS: BP 156/87
[2024-06-11 20:55] VITALS: BP 142/87
[2024-06-12 05:51] VITALS: BP 177/79
[2024-06-12 06:24] LABS: Hematocrit 32.7 % (33.0-51.0); Hemoglobin 10.6 g/dL (11.5-16.0)
[2024-06-12 06:47] LABS: Albumin, Blood 2.5 g/dL (3.4-5.0); Anion Gap 12 mmol/L (3-11); Blood Urea Nitrogen 43 mg/dL (8-24); Bun/Creatinine Ratio 11.1 (12.0-20.0); CO2, Blood 20 mmol/L (21-32); Calcium, Blood 8.6 mg/dL (8.5-10.1); Chloride, Blood 115 mmol/L (98-108); Creatinine, Blood 3.89 mg/dL (0.40-1.00); Glomerular Filtration Rate 11 (60-); Glucose, Blood 101 mg/dL (70-99); Magnesium, Blood 1.8 mg/dL (1.6-2.4); Phosphorus, Blood 4.1 mg/dL (2.5-4.9); Potassium, Blood 3.6 mmol/L (3.5-5.5); Sodium, Blood 143 mmol/L (136-145)
[2024-06-12 07:28] VITALS: BP 164/85
--- NOTE | 2024-06-12 15:34 | NUR ---
CALLED DR CRAIG PER DR GOODMAN'S REQUEST- DR GOODMAN HAS BEEN WAITING FOR DR CRAIG TO HEAR BACK FROM THE PT UROLOGIST, IN AN ATTEMPT TO DETERMINE IF NEPHROSTOMY NEEDS TO BE PLACED TODAY OR NOT. SPOKE TO DR CRAIG, HE ASKED THIS RN TO RELAY TO THE PT THAT HER UROLOGISTS OFFICE SHOULD BE CALLING HER TODAY, TO SCHEDULE FOR THE PROCEDURE NEXT WEEK AND NO NEPHROSTOMY SHOULD BE PLACED.
[2024-06-12 16:12] VITALS: BP 175/82
--- NOTE | 2024-06-12 16:27 | NUR ---
CALLED DR GOODMAN- SPOKE TO DR CRAIG AND IS AWARE THE PT IS SUPPOSED TO RECIEVE A ALL FROM HER UROLOGIST. PT RECIEVED THE CALL AND IS SCHEDULED FOR HER PROCEDURE IN [place] AT 1000 [address] OF [address] ASHLEY. PT ASKED IF THE AZUL CAN BE REMOVED, DR GOODMAN ADVISED TO CALL DR CRAIG FOR THE DC AZUL ORDER. CALLED DR CRAIG AND LEFT A MESSAGE.
--- NOTE | 2024-06-12 16:30 | NUR ---
SHIFT SUMMARY- PT ALERT AND ORIENTED X4. SHE HAS A AZUL CATH IN PLACE THAT IS PATENT AND DRAINING. LOST IV ACCESS, AFTER MULTIPLE FAILED ATTEMPTS FROM SEVERAL STAFF, A PG WAS PLACED IN ANTICIPATION OF A POSSIBLE PROCEDURE THIS EVENING. THE PROCEDURE WAS CANCELED THE PT IS SCHEDULED FOR LITHOTRIPSY WITH HER UROLOGIST ON WEDNESDAY OF THIS WEEK. DR ASHLEY. PLAN IS FOR THE PT TO DC HOME TOMORROW, THE AZUL CATH WILL REMAIN AT THE TIME OF DISCHARGE AND UROLOGY CAN REMOVE IT AT THE TIME OF HER PROCEDURE. PT IN BED, CALL LIGHT IN REACH NO CURRENT S&S OF DISTRESS NOTED. WILL PASS ON TO NIGHT RN IN BEDSIDE REPORT.
[2024-06-12 21:17] VITALS: BP 148/76
[2024-06-13 03:13] VITALS: BP 160/83
[2024-06-13 05:05] LABS: Hematocrit 34.2 % (33.0-51.0); Hemoglobin 11.1 g/dL (11.5-16.0)
[2024-06-13 05:34] LABS: Albumin, Blood 2.8 g/dL (3.4-5.0); Anion Gap 12 mmol/L (3-11); Blood Urea Nitrogen 36 mg/dL (8-24); Bun/Creatinine Ratio 10.3 (12.0-20.0); CO2, Blood 22 mmol/L (21-32); Calcium, Blood 9.2 mg/dL (8.5-10.1); Chloride, Blood 113 mmol/L (98-108); Creatinine, Blood 3.48 mg/dL (0.40-1.00); Glomerular Filtration Rate 13 (60-); Glucose, Blood 96 mg/dL (70-99); Magnesium, Blood 2.1 mg/dL (1.6-2.4); Phosphorus, Blood 3.9 mg/dL (2.5-4.9); Potassium, Blood 3.8 mmol/L (3.5-5.5); Sodium, Blood 143 mmol/L (136-145)
[2024-06-13 07:56] VITALS: BP 159/87
[2024-06-13] MEDS ORDERED: Alphagan P5 ML BOTHEYES (10:33)
[2024-06-13] MEDS ORDERED: LATA.005SO BOTHEYES (10:33)
[2024-06-13] MEDS ORDERED: TIZA4 PO (10:34)
[2024-06-13] MEDS ORDERED: SODBIC650 PO (10:34)
[2024-06-13] MEDS ORDERED: VISBIOME 112.51 EACH PO (10:35)
[2024-06-13] MEDS ORDERED: CEPH500 PO (10:36)
--- NOTE | 2024-06-13 12:41 | NUR ---
DISCHARGE NOTE- PT WAS GIVEN VERBAL AND WRITTEN DISCHARGE INSTRUCTIONS, SHE HAS AN APPOINTMENT TOMORROW AM FOR A PROCEDURE WITH HER UROLOGIST AT 1000. PT PG WAS DC'D WELL THE TELE PRIOR TO DISCHARGE. PT ACKNOWLEDGED UNDERSTANDING OF THE INSTRUCTIONS. PT ESCORTED OUT VIA WC BY THE DISCHARGE VOLUNTEER. NO S&S OF DISTRESS NOTED AT THE TIME OF DISCHARGE.
== END 2024-06-13 12:47 | disposition home or self-care (01) | DRG 683 ==
LOC: ER 13:43 → MEDS 20:31 → ERHOLD 20:31 → MEDS 23:30 → ENPENDDIS 06-13 10:29 → MEDS 06-13 12:47
PROVIDERS: Internal Medicine; Internal Medicine Nephrology; Nurse Practitioner Acute Care; Physician Assistant; Student in an Organized Health Care Education/Training Program; ADMIT Internal Medicine
DX: N17.9 Acute kidney failure, unspecified (principal); E87.0 Hyperosmolality and hypernatremia; E87.1 Hypo-osmolality and hyponatremia; E87.20 Acidosis, unspecified; E87.5 Hyperkalemia; N18.30 Chronic kidney disease, stage 3 unspecified; E88.09 Other disorders of plasma-protein metabolism, not elsewhere classified; E86.9 Volume depletion, unspecified; D63.1 Anemia in chronic kidney disease; N13.6 Pyonephrosis; I12.9 Hypertensive chronic kidney disease with stage 1 through stage 4 chronic kidney disease, or unspecified chronic kidney disease; E78.5 Hyperlipidemia, unspecified; M54.9 Dorsalgia, unspecified; G89.29 Other chronic pain; H40.9 Unspecified glaucoma; E21.3 Hyperparathyroidism, unspecified; Z88.2 Allergy status to sulfonamides; Z88.8 Allergy status to other drugs, medicaments and biological substances; Z79.899 Other long term (current) drug therapy; Z90.710 Acquired absence of both cervix and uterus; Z98.890 Other specified postprocedural states; Z90.89 Acquired absence of other organs; Z87.442 Personal history of urinary calculi; Z85.038 Personal history of other malignant neoplasm of large intestine; Z89.519 Acquired absence of unspecified leg below knee
CPT/HCPCS: 36415; 51702; 74176; 80048; 80053; 80069; 81001; 83690; 83735; 84100; 85014; 85018; 85025; 85027; 87077; 87086; 87186; 93005; 93010; 96365-59; 97110; 97161; 99285-25; A9270; C1751; J0696; J1644; J7042; J7070; J7120

== ENCOUNTER → 2024-06-27 | Outpatient (CLI) | payer OTHER ==
[~2024-06-27] MED LIST changes: +DORZOLAMIDE-TIM10 ML BOTHEYES; +LATA.005SO BOTHEYES; +NYSTATIN15 GM TOP; +SODBIC650 PO; +VISBIOME 112.51 EACH PO
[2024-06-28 16:45] LABS: Creatinine Urine 80.5 mg/dL (27.00-270.00); Protein, Urine Quantitative 101.4 mg/dL (0.0-11.9)
== END | disposition home or self-care (01) ==
LOC: LAB 15:13 → LAB SHORT 15:13
PROVIDERS: Internal Medicine Nephrology
DX: N18.4 Chronic kidney disease, stage 4 (severe) (principal); D63.1 Anemia in chronic kidney disease; N25.81 Secondary hyperparathyroidism of renal origin; E55.0 Rickets, active; N39.0 Urinary tract infection, site not specified; R76.9 Abnormal immunological finding in serum, unspecified; R94.5 Abnormal results of liver function studies; R94.6 Abnormal results of thyroid function studies
CPT/HCPCS: 81050; 82043; 82570; 84156

== ENCOUNTER → 2024-07-11 | Outpatient (CLI) | payer OTHER | END | disposition home or self-care (01) | LOC: LAB SHORT 16:03 → LAB 16:03 | DX: N39.0 Urinary tract infection, site not specified (principal) | CPT/HCPCS: 87086 ==

== ENCOUNTER 2024-11-13 22:56 | Inpatient (IN) | payer OTHER ==
[~2024-11-13] VITALS: Ht 157.5 cm; Wt 75.5 kg
[~2024-11-13 22:56] MED LIST changes: +CEFD300 PO
[2024-11-13] MEDS ORDERED: Lactated Ringer's 1,000 ML IV ONE (23:30)
[2024-11-13 23:31] LABS: Source, Urine Fem Cath
[2024-11-13 23:43] LABS: BASOPHILS ABSOLUTE AUTO 0.04 K/mm3 (0.00-0.23); BASOPHILS PERCENT AUTO 0 % (0-2); EOSINOPHILS PERCENT AUTO 0 % (0-6); Hemoglobin 16.3 g/dL (11.5-16.0); IMMATURE GRAN ABSOLUTE AUTO 0.13 K/mm3 (0.00-0.10); IMMATURE GRAN PERCENT AUTO 1 % (0-1); LYMPHOCYTES ABSOLUTE AUTO 1.85 K/mm3 (0.84-5.20); LYMPHOCYTES PERCENT AUTO 10 % (21-46); MONOCYTES PERCENT AUTO 6 % (4-13); Mean Corpuscular HGB 29.6 pg (26.0-34.0); Mean Corpuscular Volume 93 fL (80-100); Mean Platelet Volume 9.8 fL (9.1-12.4); NEUTROPHILS ABSOLUTE AUTO 14.59 K/mm3 (1.96-9.15); NEUTROPHILS PERCENT AUTO 83 % (41-73); Platelet Count 370 K/mm3 (150-400); RDW Coefficient Variation 14.1 % (11.7-14.2); Red Blood Cell Count 5.51 M/mm3 (3.80-5.20); White Blood Cell Count 17.71 K/mm3 (4.00-11.30)
[2024-11-13 23:51] LABS: Bilirubin, Urine Neg (Neg); Blood, Urine 3+ (Neg); Glucose Qualitative, Urine Neg (Neg); Ketones, Urine Neg (Neg); Leukocyte Esterase, Urine 2+ (Neg); Nitrite, Urine Neg (Neg); Protein, Urine 3+ (Neg); Specific Gravity, Urine 1.015 (1.003-1.022); Urobilinogen, Urine NORM (Normal)
[2024-11-13 23:58] LABS: Appearance, Urine Hazy (Clear); Color, Urine Yellow (P-Yellow)
[2024-11-13 23:59] LABS: U Amphetamine Screen Not Detected; U Barbituate Screen Not Detected; U Benzodiazapine Screen Not Detected; U Buprenorphine Screen Not Detected; U Cannabinoids Screen Not Detected; U Cocaine Screen Not Detected; U Methadone Screen Not Detected; U Methamphetamine Screen Not Detected; U Opiates Screen Not Detected; U Oxycodone Screen Not Detected; U Phencyclidine Screen Not Detected
[2024-11-14] VITALS (8 sets, daily range): BP systolic 139–183; BP diastolic 77–119
[2024-11-14] LABS: White Blood Cells, Urine 25-50 /hpf (0-5)
[2024-11-14 00:01] LABS: Bacteria Many /hpf; Squamous Epithelial Cells Few /hpf (Few)
[2024-11-14 00:06] LABS: Magnesium, Blood 2.8 mg/dL (1.6-2.4)
[2024-11-14 00:12] LABS: Albumin, Blood 3.5 g/dL (3.4-5.0); Albumin/Globulin Ratio 0.7 (0.8-1.8); Bilirubin, Total 0.7 mg/dL (0.1-1.0); Bun/Creatinine Ratio 19.6 (12.0-20.0); Calcium, Blood 10.3 mg/dL (8.5-10.1); Creatinine, Blood 3.06 mg/dL (0.40-1.00); Globulin, Blood 4.8 g/dL (2.2-4.0); Phosphorus, Blood 3.8 mg/dL (2.5-4.9); Potassium, Blood 4.5 mmol/L (3.5-5.5); Total Protein, Blood 8.3 g/dL (6.4-8.2)
[2024-11-14] MEDS ORDERED: CefTRIAXone Sodium 2,000 MG in NS 100 ML IV ONE (00:45)
[2024-11-14] MEDS ORDERED: Lactated Ringer's 1,000 ML IV ONE (00:50)
[2024-11-14] MEDS ORDERED: Piperacillin/Tazobactam Sod 2.25 GM in NS 50 ML IV SCH ×2 (01:16→08:00)
[2024-11-14] MEDS ORDERED: Ondansetron HCl 2 MG / ML 2ML Vial IV PRN (02:05)
[2024-11-14] MEDS ORDERED: Acetaminophen 325 MG TABLET PO PRN (02:05)
[2024-11-14] MEDS ORDERED: Lactated Ringer's 1,000 ML IV SCH (03:00)
[2024-11-14] MEDS ORDERED: CATAPRES0.1 MG PO (03:26)
[2024-11-14] MEDS ORDERED: HYDR10 PO (03:28)
[2024-11-14] MEDS ORDERED: LOSA50 PO (03:29)
[2024-11-14] MEDS ORDERED: Sodium Bicarb 8.4% Inj 150 MEQ in Dextrose 5% 1,000 ML IV SCH (03:50)
[2024-11-14] MEDS ORDERED: Sodium Bicarb 8.4% Inj 150 MEQ in Dextrose 5% 1,000 ML IV ONE (03:55)
--- NOTE | 2024-11-14 04:24 | NUR ---
ADMIT NOTE 79 YR OLD FEMALE ADMITTED TO FLOOR FROM THE ED WITH DX OF ACUTE/CHRONIC RENAL FAILURE. QUIET WITH FEW WORDS TO SAY. ED RN REPORTED PT LIVES WITH BROTHER WHO ARE BOTH "HOARDERS", PT WAS FOUND DOWN IN THE [place] WITH AMS. ED RN REPORTED PT HAD MANDEEP HERE IN THE HOSPITAL NOT LONG AGO WITH A UTI, WAS GIVEN IV ANTIBIOTICS AND SENT HOME WITH PO ANTIBIOTICS BUT APPARENTLY DID NOT TAKE THEM. PT ON CONTACT ISOLATION FOR VRE IN URINE. ORIETNED TO USE OF CALL LIGHT. CALL LIGHT IN REACH, RAILS UP X 2 AND BED IN LOW POSITION FOR SAFETY.
[2024-11-14 04:52] LABS: BASOPHILS ABSOLUTE AUTO 0.06 K/mm3 (0.00-0.23); BASOPHILS PERCENT AUTO 0 % (0-2); EOSINOPHILS PERCENT AUTO 0 % (0-6); Hemoglobin 16.8 g/dL (11.5-16.0); IMMATURE GRAN ABSOLUTE AUTO 0.14 K/mm3 (0.00-0.10); IMMATURE GRAN PERCENT AUTO 1 % (0-1); LYMPHOCYTES ABSOLUTE AUTO 2.22 K/mm3 (0.84-5.20); LYMPHOCYTES PERCENT AUTO 12 % (21-46); MONOCYTES ABSOLUTE AUTO 1.27 K/mm3 (0.16-1.47); MONOCYTES PERCENT AUTO 7 % (4-13); Mean Corpuscular HGB 30.4 pg (26.0-34.0); Mean Corpuscular HGB Conc 32.3 g/dL (31.5-36.5); Mean Corpuscular Volume 94 fL (80-100); Mean Platelet Volume 10.3 fL (9.1-12.4); NEUTROPHILS ABSOLUTE AUTO 15.16 K/mm3 (1.96-9.15); NEUTROPHILS PERCENT AUTO 81 % (41-73); Platelet Count 281 K/mm3 (150-400); RDW Coefficient Variation 14.4 % (11.7-14.2); RDW Standard Deviation 49.6 fL (35.1-46.3); Red Blood Cell Count 5.52 M/mm3 (3.80-5.20); White Blood Cell Count 18.85 K/mm3 (4.00-11.30)
[2024-11-14] MEDS ORDERED: HydrALAZINE HCl 20 MG / ML 1ML Vial IV PRN (05:20)
--- NOTE | 2024-11-14 05:20 | NUR ---
LACTIC ACID RESULTS TRENDING UP. MD NOTIFIED. ORDERS FOR FOLLOW UP DRAW IN 3 HRS
--- NOTE | 2024-11-14 05:34 | NUR ---
LOBBY CONCIERGE SUMMARY WAS ADMITTED TO FLOOR EARLIER IN THE SHIFT WITH DX OF ACUTE/CHRONIS RENAL FAILURE. WAS REPORTEDLY FOUND DOWN IN [place] AT HOME WHERE SHE AND HER BROTHER LIVE (CRUZ PER REPORT). RECENT HX OF UTI AND SENT HOME WITH PO ANTIBIOTICS, BUT NOT KNOWN IF SHE TOOK THE MEDS. BACK WITH AMS AND OCCASIONAL VERBAL RESPONSE. ELEVATED LACTIC ACID (SEE DOCUMEMTATION AND MD ORDERS). AWAKE AND SLEEPING AT INTERVALS. ON CONTACT ISOLATION FOR UTI - ORIETNED TO USE OF CALL LIGHT, CALL LIGHT IN REACH, RAILS UP X 2 AND BED IN LOW POSITION FOR SAFETY.
[2024-11-14 05:35] LABS: Albumin, Blood 3.3 g/dL (3.4-5.0); Albumin/Globulin Ratio 0.7 (0.8-1.8); Bilirubin, Total 0.8 mg/dL (0.1-1.0); Bun/Creatinine Ratio 20.9 (12.0-20.0); Calcium, Blood 9.9 mg/dL (8.5-10.1); Creatinine, Blood 2.87 mg/dL (0.40-1.00); Globulin, Blood 4.6 g/dL (2.2-4.0); Magnesium, Blood 2.7 mg/dL (1.6-2.4); Potassium, Blood 4.5 mmol/L (3.5-5.5); Total Protein, Blood 7.9 g/dL (6.4-8.2)
[2024-11-14] MEDS ORDERED: Nystatin 100,000 Unit/GM CREAM 15 GM TOP PRN (06:35)
[2024-11-14] MEDS ORDERED: Sodium Bicarbonate 650 MG Tab PO SCH (08:00)
[2024-11-14] MEDS ORDERED: Dorzolamide/Timolol Opth Soln 10 ML BOTHEYES SCH (09:00)
[2024-11-14] MEDS ORDERED: Brimonidine Tartrate 0.2% Opth 5 ml BOTHEYES SCH (09:00)
[2024-11-14] MEDS ORDERED: AmLODIPine Besylate 5 MG Tab PO SCH (09:00)
[2024-11-14] MEDS ORDERED: CloNIDine 0.1 MG Tab PO SCH (09:00)
[2024-11-14] MEDS ORDERED: Lactobacil 2-S.Thermo-Bifido 1 1 Cap PO SCH (09:00)
[2024-11-14] MEDS ORDERED: NS 250 ML IV PRN (09:45)
[2024-11-14 10:33] LABS: Base Excess Venous -7.7 mmol/L; Bicarbonate Venous 19.4 mmol/L (24.0-30.0); PCO2 Venous 31.2 mmHg (38-42); pH Blood Venous 7.36 (7.34-7.37)
--- NOTE | 2024-11-14 17:12 | NUR ---
IN HOUSE TRANSFER: PATIENT WAS TRANSFERED DOWN TO U10 c MIDDLE SCHOOL TECHNOLOGY TEACHER. PATIENTS BELONGINGS ALL PACKED IN PERSONAL BELONGINGS BAG AND TAKEN DOWN c PATIENT. REPORT GIVEN TO PCU NURSE.
--- NOTE | 2024-11-14 17:31 | NUR ---
TRANSFER NOTE. PT ARRIVED ON UNIT AT ~1645. PT NOT RESPONSIVE TO QUESTIONS/DIRECTION, UNABLE TO PARTICIPATE WITH ANY ASSESSMENT OR ORIENTATION QUESTIONS. AZUL IN PLACE. NEW IV PLACED IN LAC FOR BLOOD DRAW AND IV ZOSYN. PT TOLERATED WELL. SODIUM BICARB CONTINUES TO RUN @ 100 MLS/HR. CALL TO DR. CRAIG. PT HAD SCHEDULED SODIUM BICARB @ 1700, PT UNABLE TO TAKE PO MEDS D/T MENTATION AND ASPIRATION RISK. DR. CRAIG DCd PO SODIUM BICARB AND ORDERED STAT RENAL PANEL WITH RESULTS TO BE CALLED TO HIM. ORDER INPUT, BLOOD DRAWN, SENT TO LAB. AWAITING RESULTS. OTHERWISE PT DOING WELL. VITALS STABLE. BED LOCKED IN LOWEST POSITION. BED ALARM ACTIVE FOR SAFETY. CONTINUING TO MONITOR.
[2024-11-14 17:51] LABS: Albumin, Blood 3.2 g/dL (3.4-5.0); Anion Gap 7 mmol/L (3-11); Blood Urea Nitrogen 60 mg/dL (8-24); Bun/Creatinine Ratio 20.2 (12.0-20.0); CO2, Blood 23 mmol/L (21-32); Calcium, Blood 10.2 mg/dL (8.5-10.1); Chloride, Blood 119 mmol/L (98-108); Creatinine, Blood 2.97 mg/dL (0.40-1.00); Glomerular Filtration Rate 16 (60-); Glucose, Blood 141 mg/dL (70-99); Phosphorus, Blood 3.3 mg/dL (2.5-4.9); Potassium, Blood 4.3 mmol/L (3.5-5.5); Sodium, Blood 145 mmol/L (136-145)
[2024-11-14] MEDS ORDERED: D5W-1/2NS 1,000 ML IV SCH (18:00)
--- NOTE | 2024-11-14 18:46 | NUR ---
SPOKE WITH DR. CRAIG REGARDING RECENT RENAL PANEL RESULTS. DR. CRAIG ORDERED D5 1/2 NS @ 75 MLS/HR. INFUSING AT THIS TIME. CONTINUING TO MONITOR.
[2024-11-14] MEDS ORDERED: Metoprolol Succinate 50 MG TABCR PO SCH (21:00)
[2024-11-14] MEDS ORDERED: Latanoprost 0.005% Opth Soln 2.5 ML BOTHEYES SCH (21:00)
[2024-11-15 00:09] VITALS: BP 121/68
[2024-11-15 04:19] VITALS: BP 137/64
[2024-11-15 04:40] LABS: Hematocrit 36.8 % (33.0-51.0)
[2024-11-15 04:56] LABS: Albumin, Blood 2.6 g/dL (3.4-5.0); Anion Gap 7 mmol/L (3-11); Blood Urea Nitrogen 59 mg/dL (8-24); Bun/Creatinine Ratio 20.3 (12.0-20.0); CO2, Blood 24 mmol/L (21-32); Calcium, Blood 8.9 mg/dL (8.5-10.1); Chloride, Blood 120 mmol/L (98-108); Glomerular Filtration Rate 16 (60-); Glucose, Blood 121 mg/dL (70-99); Magnesium, Blood 2.5 mg/dL (1.6-2.4); Phosphorus, Blood 2.8 mg/dL (2.5-4.9); Potassium, Blood 3.9 mmol/L (3.5-5.5); Sodium, Blood 147 mmol/L (136-145)
[2024-11-15] MEDS ORDERED: Dextrose 5% 1,000 ML IV SCH (06:35)
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
--- NOTE | 2024-11-15 07:59 | NUR ---
ASSUMPTION NOTE: THIS RN TO ASSUME CARE OF PATIENT. PATIENT IS IN BED WATHCING TV. PATIENT IS ALERT AND ORIENTED TO SELF, NOT ABLE TO ANSWER ORIENTATION QUESTIONS. HAS CALL LGT WITHIN REACH & BED IN LOWEST POSITION.
[2024-11-15 08:00] VITALS: BP 168/89
--- NOTE | 2024-11-15 09:41 | NUR ---
MD ROUNDED: MD ROUNDED AND SPOKE WITH PATIENT. PT/OT AND SPEECH ORDERS WERE PLACED. MD TO LOOK AT IMAGING AND POSSIBLY ADD SOME MORE. NEPHRO IS CONSULTED AND MD WOULD LIKE TO ADDRESS THE NEPRHO TUBE ISSUES OUTPATIENT. PATIENT IS ALERT AND TALKING WITH MD. MOVING ALL EXTREMITIES.
[2024-11-15] MEDS ORDERED: Meropenem 500 MG in NS 100 ML IV SCH (11:13)
[2024-11-15 12:02] VITALS: BP 104/64
[2024-11-15 15:46] VITALS: BP 144/84
--- NOTE | 2024-11-15 17:10 | NUR ---
SHIFT SUMMARY: PATIENT IS ALERT AND ORIENTED X2-3. PATIENT AWARE OF SON AT BEDSIDE AND SELF. PATIENT SPEECH IS VERY MUMBLED. WAS SLEEPY AT THE BEGINNING OF THE SHIFT AND BECAME MORE ALERT THROUGHOUT THE SHIFT, SON CAME TO BEDSIDE. PATIENT IS [facility] TELE STATUS. SATTING >92% ON ROOM AIR. DEXTROSE CONTINUES TO BE RUNNING AT 100 & SODIUM DID COME DOWN FROM PREVIOUS LAB DRAW, SEE RESULTS FOR MORE INFORMATION. PT/OT AND SPEECH ORDERED, SPEECH TO WORK WITH HER TOMORROW. NEW PHOTOS WERE UPDATED IN THE CHART AND MEPELEX WAS CHANGED DUE TO BEING SOILED. PREVENATIVE HEEL PROTECTORS WERE ADDED. PT HAS CALL LIGHT WITHIN REACH, SITTING UP WATCHING TV VISITING WITH SON AND DENYING ANY NEEDS AT THIS TIME.
[2024-11-15 19:47] VITALS: BP 144/74
[2024-11-15] MEDS ORDERED: Heparin Sodium,Porcine 5,000 UNIT/0.5 ML SDV SC SCH (21:00)
[2024-11-16 04:05] LABS: BASOPHILS ABSOLUTE AUTO 0.04 K/mm3 (0.00-0.23); BASOPHILS PERCENT AUTO 1 % (0-2); EOSINOPHILS ABSOLUTE AUTO 0.14 K/mm3 (0.00-0.68); EOSINOPHILS PERCENT AUTO 2 % (0-6); Hematocrit 35.6 % (33.0-51.0); Hemoglobin 11.5 g/dL (11.5-16.0); IMMATURE GRAN ABSOLUTE AUTO 0.05 K/mm3 (0.00-0.10); IMMATURE GRAN PERCENT AUTO 1 % (0-1); LYMPHOCYTES ABSOLUTE AUTO 2.84 K/mm3 (0.84-5.20); LYMPHOCYTES PERCENT AUTO 37 % (21-46); MONOCYTES ABSOLUTE AUTO 0.66 K/mm3 (0.16-1.47); MONOCYTES PERCENT AUTO 9 % (4-13); Mean Corpuscular HGB Conc 32.3 g/dL (31.5-36.5); Mean Corpuscular Volume 93 fL (80-100); Mean Platelet Volume 9.9 fL (9.1-12.4); NEUTROPHILS ABSOLUTE AUTO 4.03 K/mm3 (1.96-9.15); NEUTROPHILS PERCENT AUTO 52 % (41-73); Platelet Count 215 K/mm3 (150-400); RDW Coefficient Variation 14.3 % (11.7-14.2); RDW Standard Deviation 48.9 fL (35.1-46.3); Red Blood Cell Count 3.83 M/mm3 (3.80-5.20); White Blood Cell Count 7.76 K/mm3 (4.00-11.30)
[2024-11-16 04:18] VITALS: BP 139/84
[2024-11-16 04:20] LABS: Albumin, Blood 2.6 g/dL (3.4-5.0); Anion Gap 9 mmol/L (3-11); Blood Urea Nitrogen 47 mg/dL (8-24); Bun/Creatinine Ratio 18.4 (12.0-20.0); CO2, Blood 21 mmol/L (21-32); Calcium, Blood 8.4 mg/dL (8.5-10.1); Chloride, Blood 117 mmol/L (98-108); Creatinine, Blood 2.55 mg/dL (0.40-1.00); Glomerular Filtration Rate 19 (60-); Glucose, Blood 100 mg/dL (70-99); Phosphorus, Blood 2.5 mg/dL (2.5-4.9); Potassium, Blood 3.7 mmol/L (3.5-5.5); Sodium, Blood 143 mmol/L (136-145)
--- NOTE | 2024-11-16 06:23 | NUR ---
PT STABLE THROUGHOUT THE SHIFT. PT AOX2, CONFUSION CONTINUES, PT HAS TROUBLE FINDING WORDS AND IS FORGETFUL. PT REMAINS NPO UNTIL CLEARED BY SPEECH THERAPY. PT TOLERATING IV FLUIDS WELL, CBG REMAINS WNL. VITAL SIGNS ALL WNL. AZUL CONTINUES TO DRAIN WELL, YELLOW URINE. PT HAS HAD GOOD OUTPUT THIS SHIFT.
--- NOTE | 2024-11-16 07:19 | NUR ---
ASSUMPTION NOTE: THIS RN TO ASSUME CARE OF PT. PATIENT IS SITTING UP IN BED WATHCING TV. PT IS ALERT,SPEECH IS VERY MUMBLED. ATTEMPTS TO ANSWER QUESTIONS BUT THIS RN IS NOT ABLE TO MAKE OUT WHAT PT IS STATING. PT SAID "NO" WHEN ASKED IF SHE WAS IN PAIN. VITAL SIGNS STABLE. PT HAS CALL LIGHT WITHIN REACH, BED IN LOWEST POSITION & STATING NOTHING ELSE IS NEEDED AT THIS TIME.
[2024-11-16 07:21] VITALS: BP 152/80
--- NOTE | 2024-11-16 09:50 | NUR ---
ROUNDED: ROUNDED WHILE SPEECH WAS IN THE ROOM. PT IS NOW SOFT & BITE SIZED WITH FEEDER ASSITANCE. MD WAS MADE AWAR BY THIS RN THAT AFTER LOOKING THERE WAS NO HEAD IMAGING DONE ON PT AND WHILE IT WAS BROUGHT UP YESTERDAY THE CONCERN AGAIN WAS BROUGHT THAT PT IS HAVING SOME DYSPHAGIA. MD ORDERED HEAD CT AND SPEECH RECOMMENDED SNF.
[2024-11-16] MEDS ORDERED: Lactated Ringer's 1,000 ML IV ONE (10:00)
[2024-11-16] MEDS ORDERED: Aspirin 81 MG Chew PO ONE (10:50)
[2024-11-16] MEDS ORDERED: Atorvastatin 40 MG Tab PO SCH (11:00)
[2024-11-16 11:09] VITALS: BP 138/74
--- NOTE | 2024-11-16 13:10 | NUR ---
CONTACTED: THIS RN CALLED MD CRAIG REGARDING SODIUM LAB RESULT, NO NEW ORDERS WERE GIVEN.
[2024-11-16 13:15] VITALS: BP 138/74
[2024-11-16 17:10] VITALS: BP 130/110
--- NOTE | 2024-11-16 17:14 | NUR ---
SHIFT SUMMARY: PATIENT IS ALERT AND ORIENTED X2, SPEECH IS BECOMING MORE CLEAR THROUGHOUT THE SHIFT BUT AT TIMES CONTINUES TO BE VERY MUMBLED. PT IS MEDICAL STATUS WITHOUT TELE AND SATTING >92% ON ROOM AIR. PT GOT A HEAD MRI,NECK AND CTA DONE TODAY,SEE CHART FOR RESULTS. PT HAS PT AND OT/ST ORDERED. SPEECH SAW HER AND SHE IS NOW SOFT AND BITE SIZED, THIN LIQUIDS AND FEEDER ASSIST. PHYSICAL THERAPY DID NOT WORK WITH HER TODAY. PT CONTINUES TO HAVE DEXTROSE RUNNING AT 50ML/HR. PT WAS ABLE TO PIVOT AND TRANSFER TO THE CHAIR AT [facility]. PT IS A HEAVY TO PERSON ASSIST WITH GAIT BELT. SON WAS AT [facility] THROUGHOUT THE SHIFT. DAUGHTER CALLED AND WAS NOTIFIED TO UPDATE HER REGARDING PT'S PLAN OF CARE. PT IS CURRENTLY SITTING IN THE CHAIR, HAS CHAIR ALARM,CALL LIGHT WITHIN REACH & STATING NOTHING ELSE IS NEEDED AT THIS TIME.
[2024-11-16 20:15] VITALS: BP 146/82
[2024-11-17 04:30] LABS: Hematocrit 34.9 % (33.0-51.0); Hemoglobin 11.2 g/dL (11.5-16.0)
[2024-11-17 04:34] VITALS: BP 133/85
[2024-11-17 04:57] LABS: Albumin, Blood 2.6 g/dL (3.4-5.0); Anion Gap 9 mmol/L (3-11); Blood Urea Nitrogen 38 mg/dL (8-24); CO2, Blood 22 mmol/L (21-32); Calcium, Blood 8.4 mg/dL (8.5-10.1); Chloride, Blood 114 mmol/L (98-108); Creatinine, Blood 2.24 mg/dL (0.40-1.00); Glomerular Filtration Rate 22 (60-); Glucose, Blood 98 mg/dL (70-99); Magnesium, Blood 2.2 mg/dL (1.6-2.4); Phosphorus, Blood 2.9 mg/dL (2.5-4.9); Potassium, Blood 3.8 mmol/L (3.5-5.5); Sodium, Blood 141 mmol/L (136-145)
--- NOTE | 2024-11-17 06:10 | NUR ---
PT STABLE THROUGHOUT THE SHIFT. PT REMAINS AOX2, DIFFICULTY WITH WORDS BUT DOES APPEAR MORE ALERT. VITAL SIGNS WNL. PT WAS ABLE TO TAKE PO MEDICATIONS WITH APPLESAUCE. AZUL REMAINS IN PLACE D/T RETENTION. PT HAS HAD GOOD URINARY OUTPUT. BED ALARM ON, BED IN LOWEST POSITION WITH BRAKES ON. UPPER SIDE RAILS UP AND BEDSIDE TABLE/CALL LIGHT IN REACH.
[2024-11-17 08:06] VITALS: BP 129/82
[2024-11-17] MEDS ORDERED: Aspirin 81 MG Chew PO SCH (09:00)
--- NOTE | 2024-11-17 09:55 | NUR ---
AM NOTES; PT WAS SOMEWHAT INTERACTIVE THIS MORNING STILL HASVING A HARD TIME FINDING WORDS, BUT IS ABLE TO ANSWER CLOSE ENDED QUESTIONS LIKE "YEAH' "IM OKAY" "NO". FOLLOWS SOME COMMANDS, IMPULSIVE AT TIMES LIKE WHEN EATING BREAKFAST PT WAS AKSED TO SLOW DOWN ON EATING AND DRINKING PT NEEDS FREQUENT REMINDER, PT IS ABLE TO FEED HERSELF WITH LEFT HAND. SPEECH THERAPIST WENT AND SAW HER AND MENTIONED THAT HER SPEECH HAS WORSENED FORM YESTERDAY, DATA MODELING ARCHITECT AND MD MADE AWARE RECOMMENDING TO MONITOR PT WAXES AND WANES EVEN FROM YESTERDAY PER DR PITTMAN. PT DOWNGRADED TO MINCED AND MOIST DIET. VITALS HAS BEEN STABLE, AWAITING FOR PT/OT TO WORK WITH PT. AZUL DRAINING CLOUDY URINE VIA GRAVITY. PT RESTING IN BED, BED ALARM ON FOR SAFETY, BED IN LOWEST POSITION. WILL CONTINUE TO MONITOR
[2024-11-17] MEDS ORDERED: Polyethylene Glycol 3350 17 gm PO PRN (10:20)
[2024-11-17 12:00] VITALS: BP 123/80
--- NOTE | 2024-11-17 13:22 | NUR ---
PT UPDATE; SON AND GRANDSON CAME TO VISIT AT AROUND LUNCH TIME, THIS RN AND THE OPHTHALMIC TECHNICIAN ASSISTED PT TO SIT ON THE SIDE OF THE BED AND PT WASNT ABLE TO HOLD HERSELF UP SITTING AND KEEPS LEANING ON THE RIGHT SIDE, PT WAS ABLE TO USE RIGHT ARM A LITTLE BIT THIS MORNING TO GRASP UTENSILS NOW UNABLE TO, RIGHT FACIAL DROOP HAS BECOME MORE PROMINENT AND NOW HAS SOME DROOLS. PO INTAKE HELD AT THIS TIME DR PITTMAN CALLED AND MADE AWARE AND ABLE TO COME TO THE BEDSIDE AND REASSESS PTMD AGREEABLE WITH THE WORSENING RIGHT SIDE DEFICITS. LABS ORDERED. VITALS HRR ON THE 70'S, SBP 120'S, SATS ABOVE 90% ON RA, AFEBRILE. WILL CONTINUE TO MONITOR
[2024-11-17 13:41] LABS: Thyroid Stimulating Hormone 2.45 uIU/mL (0.360-4.800)
[2024-11-17 13:50] LABS: Base Excess Venous -5.7 mmol/L; Bicarbonate Venous 20.8 mmol/L (24.0-30.0); PCO2 Venous 28.1 mmHg (38-42); pH Blood Venous 7.43 (7.34-7.37)
[2024-11-17] MEDS ORDERED: D5W-1/2NS 1,000 ML IV SCH (14:20)
[2024-11-17 15:21] VITALS: BP 133/75
--- NOTE | 2024-11-17 15:39 | NUR ---
PT HEADING FOR REPEAT HEAD CT AT THIS TIME
--- NOTE | 2024-11-17 17:51 | NUR ---
PT SUMMARY; SEE PREVIOUS NOTE; PT HAS BEEN RESTING IN BED FOR THE REST OF THE SHIFT, Q2 TURNS. VITALS HAS BEEN STABLE. REPEAT HEAD CT SHOWED INFARCT EVOLUTION, DR PITTMAN MADE AWARE NO NEW ORDERS AT THIS TIME, NIHSS AT 19. PT KEPT NPO AT THIS TIME UNTIL REEVALUATED BY SPEECH THERAPIST IN AM, ORAL CARE PROVIDED, SUCTION AT BEDSIDE PRN. PT/OT TO REATTEMPT TO SEE PT IN AM. D51/2 NS STARTED. AZUL STILL DRAINING VIA GRAVITY. WILL REPORT TO ONCOMING SHIFT
[2024-11-17 20:52] VITALS: BP 164/73
[2024-11-17 21:53] VITALS: BP 150/77
[2024-11-18 04:56] LABS: Hematocrit 40.5 % (33.0-51.0); Hemoglobin 13.3 g/dL (11.5-16.0)
[2024-11-18 05:08] VITALS: BP 163/83
[2024-11-18 05:44] LABS: Magnesium, Blood 2.2 mg/dL (1.6-2.4)
[2024-11-18 05:45] LABS: Albumin, Blood 3.1 g/dL (3.4-5.0); Anion Gap 10 mmol/L (3-11); Blood Urea Nitrogen 32 mg/dL (8-24); Bun/Creatinine Ratio 15.8 (12.0-20.0); CO2, Blood 19 mmol/L (21-32); Calcium, Blood 9.3 mg/dL (8.5-10.1); Chloride, Blood 118 mmol/L (98-108); Creatinine, Blood 2.03 mg/dL (0.40-1.00); Glomerular Filtration Rate 25 (60-); Glucose, Blood 116 mg/dL (70-99); Phosphorus, Blood 2.9 mg/dL (2.5-4.9); Potassium, Blood 3.7 mmol/L (3.5-5.5); Sodium, Blood 143 mmol/L (136-145)
--- NOTE | 2024-11-18 06:14 | NUR ---
SHIFT SUMMARY PATIENT ALERT AND ORIENTED TO SELF. PATIENT ATTEMPTS TO SPEAK, BUT UNABLE TO COMMUNICATE WHAT SHE IS TRYING TO SAY. MARKED RIGHT LIMB WEAKNESS AND FACIAL DROOP, WITH DIFFICULTY FOLLOWING COMMANDS. PATIENT ON ROOM AIR. MEDICATED PER EMAR FOR HTN. WILL CONTINUE TO MONITOR. CALL LIGHT WITHIN REACH.
[2024-11-18 08:08] VITALS: BP 178/92
--- NOTE | 2024-11-18 17:29 | NUR ---
SHIFT NOTE: AT CHANGE OF SHIFT THIS AM THE DATE NIGHT CAREGIVER NURSE AND THIS RN PERFORMED THE NIH ASSESSMENT AND SCORED THE PATIENT AT 13. THE PATIENT DEFICITS HAVE REMAINED UNCHANGED THROUGH OUT THE SHIFT. THE PT IS ALERT BUT UNABLE TO ANSWER QUESTIONS APPROPRIATELY DUE TO EXPRESSIVE APHASIA. SHE CONTINUES TO HAVE RIGHT SIDED FACIAL DROOP AND RIGHT SIDED EXTRIMTY WEAKNESS. SHE IS ABLE TO TRANSFER VIA STAND AND PIVOT WITH TWO STAFF ASSIST. VITAL SIGNS ARE STABLE WITH AN ELEVATED SBP THIS AM BEFORE MORNING MEDS. SHE IS ON RA WITH NO S/SX OF SOB WITH SPO2 REMAINING >90%. HER AZUL CONTINUES TO DRAIN VIA GRAVITY. SHE HAD A FORMED BM THIS AFTERNOON. STAFF HAS ASSISTED WITH REPOSITIONING IN BED T/O DAY. FAMILY HAS BEEN AT BEDSIDE T/O DAY AND HAVE BEEN UPDATED ON PLAN OF CARE. CARE CONTINUES
[2024-11-18 20:50] VITALS: BP 152/87
[2024-11-18 23:38] VITALS: BP 112/67
[2024-11-19 04:00] LABS: Hematocrit 34.5 % (33.0-51.0); Hemoglobin 11.4 g/dL (11.5-16.0)
[2024-11-19 04:17] LABS: Magnesium, Blood 2.2 mg/dL (1.6-2.4)
[2024-11-19 04:18] LABS: Albumin, Blood 2.6 g/dL (3.4-5.0); Anion Gap 8 mmol/L (3-11); Blood Urea Nitrogen 39 mg/dL (8-24); Bun/Creatinine Ratio 17.4 (12.0-20.0); CO2, Blood 21 mmol/L (21-32); Calcium, Blood 8.9 mg/dL (8.5-10.1); Chloride, Blood 119 mmol/L (98-108); Creatinine, Blood 2.24 mg/dL (0.40-1.00); Glomerular Filtration Rate 22 (60-); Glucose, Blood 121 mg/dL (70-99); Phosphorus, Blood 3.5 mg/dL (2.5-4.9); Potassium, Blood 3.9 mmol/L (3.5-5.5); Sodium, Blood 144 mmol/L (136-145)
[2024-11-19 05:31] VITALS: BP 131/76
--- NOTE | 2024-11-19 06:55 | NUR ---
PT ALERT AND ORIENTED BUT HAS EXPRESSIVE APHASIA. Q 2 TURNS. CHRONIC AZUL DRAINING YELLOW URINE. ON IV ANTIBIOTICS FOR UTI. VITALS WNL. NO COMPLAINS OF PAIN.
[2024-11-19 08:55] VITALS: BP 147/75
[2024-11-19 11:20] VITALS: BP 122/70
--- NOTE | 2024-11-19 11:26 | NUR ---
NOTE PT RESTING QUIETLY. EYES CLOSED. HOB 30 DEGREES FOR ASPIRATION PRECAUTION. BED BATH DONE. PT MOVED RUE A LITTLE. SHE TRIED TO HOLD THE PICTURE BOARD WITH HER RIGHT HAND. VSS. CHEWS HER PILLS EVEN WITH CUEING. POCKETS RIGHT CHEEK. BED LOW AND LOCKED. CALL LIGHT WITH IN REACH. CARE ONGOING.
[2024-11-19 15:10] VITALS: BP 115/77
--- NOTE | 2024-11-19 17:13 | NUR ---
NOTE PT RESTING QUIETLY. AWAKENS EASILY. SHE REFUSED BATHING AND ORAL CARE. REPOSITIONED PRN. YES/NO ANSWERS. SHE ATTEMPTS TO USE THE POINTER BOARD. PT NEEDS MEAL ASSIST. ASPIRATION PRECAUTIONS. RIGHT UE POWER GLIDE PATENT. AZUL PATENT WITH LUCAS, CLEAR URINE. BED LOW AND LOCKED. CALL LIGHT NEAR HER LEFT HAND. VSS. CARE ONGOING.
--- NOTE | 2024-11-19 18:06 | NUR ---
DINNER PT REFUSED DINNER. REAPPROACHED X3. OFFERED A CHOCOLATE CHIP COOKIE SOFTNER IN MILK. SHE HAD IT YESTERDAY. SHE REFUSED. REFUSED WATER WELL. CARE ONGOING.
[2024-11-19 18:28] VITALS: BP 151/84
--- NOTE | 2024-11-19 18:31 | NUR ---
TRANSFER 334 PT TRANSFERED TO 334 VIA BED. BEDSIDE REPORT GIVEN TO RAGHU OKEEFE. CARE ONGOING.
--- NOTE | 2024-11-19 18:37 | NUR ---
TRANSFER FROM PCU 10, REPORT FROM SEUN OKEEFE, JORGE ALBERTO IN PLACE, PG, ALERT AND OREINTED WITH EXPRESSIVE APHASIA, PATIENT EMOTIONAL AND CRYING, ISOLATION FOR ESBL IN URINE AND HX OF MRSA. DR CRAIG CONSULTING, FEED ASSIST, PILLS WHOLE WITH PUREE, WILL RELAY TO PM RN, CALL LIGHT WITH IN REACH, PATIENT NOT IMPULSIVE
[2024-11-19 19:49] VITALS: BP 150/82
[2024-11-20 04:59] VITALS: BP 125/66
[2024-11-20 06:01] LABS: Hematocrit 36.6 % (33.0-51.0); Hemoglobin 11.9 g/dL (11.5-16.0)
--- NOTE | 2024-11-20 06:27 | NUR ---
SHIFT SUMMARY A&O X3, DISORIENTED W/ EXPRESSIVE APHASIA. VSS. BED BOUND DUE TO ISCHEMIC STROKE & R SIDE WEAKNESS. ON MINCED DIET LVL 5, CANT TOLERATE DRINKING ADEQUATE WATER SHE COUGHS AFTER A FEW SIPS. IFC DRAINING LIGHT YELLOW URINE. MAINTAIN CONTACT PREC FOR ESBL/MRSA. RESUMED APPLICATTON OF SCD. MAINTAINED ALL FOAM WOUND DRESSINGS DRY. AWAITS PLAN FOR SNF. ABLE TO REST WELL AT NIGHT.
[2024-11-20 06:31] LABS: Albumin, Blood 2.8 g/dL (3.4-5.0); Anion Gap 9 mmol/L (3-11); Blood Urea Nitrogen 41 mg/dL (8-24); Bun/Creatinine Ratio 20.4 (12.0-20.0); CO2, Blood 19 mmol/L (21-32); Calcium, Blood 9.4 mg/dL (8.5-10.1); Chloride, Blood 118 mmol/L (98-108); Creatinine, Blood 2.01 mg/dL (0.40-1.00); Glomerular Filtration Rate 25 (60-); Glucose, Blood 100 mg/dL (70-99); Magnesium, Blood 2.3 mg/dL (1.6-2.4); Phosphorus, Blood 3.2 mg/dL (2.5-4.9); Sodium, Blood 142 mmol/L (136-145)
[2024-11-20 07:42] VITALS: BP 148/79
[2024-11-20 15:20] VITALS: BP 131/74
--- NOTE | 2024-11-20 18:26 | NUR ---
SHIFT SUMMARY PT AOX2-3, HEAVY APHASIA THIS AM, IMPROVED THE SHIFT PROGRESSED. AZUL IN PLACE, PATENT AND DRAINING. NO ACUTE COMPLAINTS. REPOSITIONED THROUGHOUT THE SHIFT. MEPALEX TO BOTTOM (X2) CHANGED THIS SHIFT. FAMILY AT THE BS. BARIUM SWALLOW STUDY TO BE DONE TOMORROW. PT TOLERATED DINNER WELL. NO ACUTE EVENTS PER TELE. CALL LIGHT WITHIN REACH, BED LOCKED AND IN THE LOWEST POSITION. WILL REPORT TO ONCOMING NURSE.
[2024-11-20 19:59] VITALS: BP 135/63
[2024-11-21 04:29] VITALS: BP 136/73
[2024-11-21 05:31] LABS: Hemoglobin 12.5 g/dL (11.5-16.0)
[2024-11-21 05:48] LABS: Magnesium, Blood 2.4 mg/dL (1.6-2.4)
[2024-11-21 05:49] LABS: Albumin, Blood 2.9 g/dL (3.4-5.0); Anion Gap 8 mmol/L (3-11); Blood Urea Nitrogen 51 mg/dL (8-24); Bun/Creatinine Ratio 24.4 (12.0-20.0); CO2, Blood 20 mmol/L (21-32); Chloride, Blood 119 mmol/L (98-108); Creatinine, Blood 2.09 mg/dL (0.40-1.00); Glomerular Filtration Rate 24 (60-); Glucose, Blood 113 mg/dL (70-99); Potassium, Blood 4.4 mmol/L (3.5-5.5); Sodium, Blood 143 mmol/L (136-145)
--- NOTE | 2024-11-21 06:26 | NUR ---
SHIFT SUMMARY APPEARS COMFORTABLE SITTING ON BED. VSS BP CNTRLD BY MEDS. APHASIA AND R SIDE STILL WEAK.ABLE TO TOLERATE CURRENT DIET BETTER W/C HAS IMPROVED TODAY. ENCOURAGED HYDRATION W/ THICKENERS. STILL ON IV ABX. HAS NEW ACQUIRED SKIN TEAR AT R ELBOW AND COVERED W/ FOAM & COBAN. SLEPT WELL AT NIGHT.
[2024-11-21 08:41] VITALS: BP 126/82
[2024-11-21] MEDS ORDERED: Polyethylene Glycol 3350 17 gm PO PRN (11:45)
[2024-11-21 15:51] VITALS: BP 130/71
--- NOTE | 2024-11-21 16:14 | NUR ---
PT IS A 79 Y.O. WOMAN WITH CKD STAGE 3, REMOTE HX OF COLON CANCER. SHE RECENTLY PRESENTED TO THE ED WITH AMS. PT WAS FOUND DOWN BY HER SON IN HER "HOARDED HOME." SON STATES HER HOME IS "WORSE THAN AN EPISODE OF HOARDERS," STATING HIS OWN HOMELESS SON REFUSED TO STAY THERE DUE TO RATS STEALING FOOD DIRECTLY FROM HIS HANDS. PER EUGENIA, THE PLAN IS FOR THE PATIENT TO GO TO REHAB IN [place] TO BE CLOSER TO HIS SISTER, THE PATIENT'S DAUGHTER. 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 CODE STATUS IS: FULL AND THIS IS CORRECT VS PT'S POLST ON FILE. SON DOES NOT WISH TO CHANGE PT'S WISHES AT THIS TIME. WILL DISCUSS WITH DAUGHTER WHEN SHE RETURNS MY CALL. THE PATIENT IS CURRENTLY EXPERIENCING EXPRESSIVE APHASIA.
--- NOTE | 2024-11-21 17:32 | NUR ---
SHIFT SUMMARY PT AOX2-3, BR AT THIS TIME. PT REPOSITIONED THROUGHOUT THE SHIFT. FEEDER. AZUL DRAINING AND PATENT. BARIUM SWALLOW DONE TODAY. DAUGHTER, BEAR, PROVIDED AN UPDATE ON THE PHONE. NO ACUTE COMPLAINTS. PT APPEARS COMFORTABLE. CALL LIGHT WITHIN REACH, BED LOCKED AND IN THE LOWEST POSITION. WILL REPORT TO ONCOMING NURSE.
[2024-11-21 20:08] VITALS: BP 131/71
[2024-11-22 03:38] VITALS: BP 159/87
--- NOTE | 2024-11-22 04:57 | NUR ---
SHIFT SUMMARY; PATIENT SLEPT IN LONG INTERVALS. DID NOT USE ANY PRN MEDS. REPOSITION Q2HR. REMAINS IN CONTACT PRECAUTIONS FOR MRSA & ESBL.
[2024-11-22 06:02] LABS: Hematocrit 39.3 % (33.0-51.0); Hemoglobin 12.6 g/dL (11.5-16.0)
[2024-11-22 06:27] LABS: Albumin, Blood 2.9 g/dL (3.4-5.0); Anion Gap 7 mmol/L (3-11); Blood Urea Nitrogen 50 mg/dL (8-24); CO2, Blood 20 mmol/L (21-32); Calcium, Blood 9.7 mg/dL (8.5-10.1); Chloride, Blood 119 mmol/L (98-108); Creatinine, Blood 2.27 mg/dL (0.40-1.00); Glomerular Filtration Rate 22 (60-); Glucose, Blood 105 mg/dL (70-99); Magnesium, Blood 2.4 mg/dL (1.6-2.4); Phosphorus, Blood 3.6 mg/dL (2.5-4.9); Potassium, Blood 4.3 mmol/L (3.5-5.5); Sodium, Blood 142 mmol/L (136-145)
[2024-11-22 08:03] VITALS: BP 154/79
--- NOTE | 2024-11-22 12:26 | NUR ---
RIGHT FOOT TO PROTECT AGAINST FOOT DROP ON HER RIGHT FOOT. PLACED A RIGHT FOOT A" HEEL MEDIX ADVANCED WITH WEDGE". PHYSICAL THERAPY AGREED THAT IT WOULD BE A GOOD IDEA. CARE ONGOING.
[2024-11-22 15:23] VITALS: BP 121/67
--- NOTE | 2024-11-22 17:58 | NUR ---
NOTE PT ALERT. ANSWERS YES/NO. SHE POINTS AT THINGS SHE WANTS. MEAL ASSIST. SHE WAS UP IN THE RECLINER UNTIL AFTER LUNCH. RETUNRED TO BED WITH ENZO. PT TOLERATING RIGHT FOOT BOOT. LUNGS CTA. RA. AZUL PATENT. BED LOW AND LOCKED. CALL LIGHT PLACED ON HER LEFT SIDE. CARE ONGOING.
[2024-11-22 19:34] VITALS: BP 134/72
[2024-11-23 03:51] VITALS: BP 126/73
--- NOTE | 2024-11-23 05:15 | NUR ---
SHIFT SUMMARY PATIENT SLEPT WELL THROUGHOUT THE NIGHT. TOOK MEDICATIONS CRUSHED IN APPLESAUCE. VITAL SIGNS REMAINED STABLE. REPOSITIONED Q2H. AZUL DRAINING TO GRAVITY. MEDIUM BOWEL MOVEMENT. NO ACUTE CHANGES. BED IN LOWEST POSITION, CALL LIGHT IN REACH. WILL REPORT TO ONCOMING RN.
[2024-11-23 07:14] VITALS: BP 123/69
[2024-11-23 15:10] VITALS: BP 129/67
[2024-11-23 19:55] VITALS: BP 148/78
--- NOTE | 2024-11-24 05:21 | NUR ---
SHIFT SUMMARY; PATIENT SLEPT IN LONG INTERVALS, REAMAINS IN CONTACT PRECAUTIONS FOR ESBL IN URINE. SWALLOWED MOST PILLS WHOLE IN APPLSAUCE. R FOOT IN BRACE FOR SUPPORT. GIVEN PRN TYLENOL FOR GENRAL DISCOMFORTS.
[2024-11-24 05:23] VITALS: BP 147/77
[2024-11-24 07:18] VITALS: BP 137/90
--- NOTE | 2024-11-24 14:15 | NUR ---
DISCHARGE SUMMARY CLIENT ALERT, BUT UNABLE TO ANSWER QUESTION DUE TO SPEECH DEFICIT SECONDARY TO STROKE. MEDICATION COMPLIANT. REMAINED IN CONTACT PRECAUTIONS FOR ESBL. CLIENT DISCHARGED TO [facility] IN [place] FOR REHAB. AZUL D/C'D AT 0900. CLIENT D/C'D AT APPROX 1115. PROPERTY AND DISCHARGE PACKET SENT WITH AUTO SERVICE STATION ATTENDANT FROM [facility]. CLIENT LEFT THE UNIT VIA WHEELCHAIR. REPORT CALLED TO [facility].
== END 2024-11-24 11:00 | DRG 871 ==
LOC: ER 22:56 → MEDS 11-14 02:03 → PCU 11-14 02:03 → MEDS 11-14 03:27 → PCU 11-14 16:52 → MEDS 11-19 18:20
PROVIDERS: Family Medicine; Internal Medicine; Internal Medicine Nephrology; Student in an Organized Health Care Education/Training Program; ADMIT Student in an Organized Health Care Education/Training Program
DX: A41.9 Sepsis, unspecified organism (principal); G92.8 Other toxic encephalopathy; I63.512 Cerebral infarction due to unspecified occlusion or stenosis of left middle cerebral artery; E87.20 Acidosis, unspecified; N25.81 Secondary hyperparathyroidism of renal origin; E87.0 Hyperosmolality and hypernatremia; Z16.24 Resistance to multiple antibiotics; N18.4 Chronic kidney disease, stage 4 (severe); R47.01 Aphasia; N17.9 Acute kidney failure, unspecified; G81.90 Hemiplegia, unspecified affecting unspecified side; N13.6 Pyonephrosis; Z60.2 Problems related to living alone; I12.9 Hypertensive chronic kidney disease with stage 1 through stage 4 chronic kidney disease, or unspecified chronic kidney disease; R29.810 Facial weakness; R13.12 Dysphagia, oropharyngeal phase; Z96.652 Presence of left artificial knee joint; R65.20 Severe sepsis without septic shock; E83.52 Hypercalcemia; D63.1 Anemia in chronic kidney disease; E88.09 Other disorders of plasma-protein metabolism, not elsewhere classified; R54 Age-related physical debility; K59.00 Constipation, unspecified; E86.0 Dehydration; R29.713 NIHSS score 13; M54.9 Dorsalgia, unspecified; L89.151 Pressure ulcer of sacral region, stage 1; Z89.519 Acquired absence of unspecified leg below knee; Z90.710 Acquired absence of both cervix and uterus; Z90.89 Acquired absence of other organs; Z88.8 Allergy status to other drugs, medicaments and biological substances; Z88.5 Allergy status to narcotic agent; Z88.2 Allergy status to sulfonamides; Z79.899 Other long term (current) drug therapy; Z85.038 Personal history of other malignant neoplasm of large intestine; Z98.890 Other specified postprocedural states; Z98.41 Cataract extraction status, right eye; Z98.42 Cataract extraction status, left eye; Z93.2 Ileostomy status; Z93.4 Other artificial openings of gastrointestinal tract status; Z92.21 Personal history of antineoplastic chemotherapy; Z92.3 Personal history of irradiation; Z98.1 Arthrodesis status; Z87.19 Personal history of other diseases of the digestive system; Z90.722 Acquired absence of ovaries, bilateral
CPT/HCPCS: 36415; 70450; 70496; 70498; 70551; 71045; 74230; 76770; 80053; 80069; 81001; 82140; 82330; 82550; 82803; 82947; 83605; 83735; 84100; 84295; 84443; 85014; 85018; 85025; 87040; 87077; 87086; 87186; 92507; 92523; 92526; 92610; 92611; 93005; 93010; 93306; 96361; 96365; 97110; 97112; 97161; 97166; 97530; 97535; 99285-25; A9270; C1751; J0360; J1644; J2185; J2543; J7042; J7050; J7070; J7120; Q9967